=== PATIENT | female | born 1975 | race Caucasian/White ===

== ENCOUNTER 2017-05-20 10:18 | Inpatient (IN) | payer BC, OTHER ==
[2017-05-20] VITALS (34 sets, daily range): BP systolic 109–163; BP diastolic 53–96; PULSE 75–114; RESP 9–29; Ht 160 cm; Wt 72.0 kg
[~2017-05-20] VITALS: Ht 160 cm; Wt 72.0 kg
[~2017-05-20 10:18] MED LIST: ARIP5TAB7 PO; BUPR-75 PO; CEFAZOLIN 1 GM INJ ONE; FA/M1TAB3; FAMO-96 PO; HYDR-762 PO; METO5TAB2 PO; ONDA8TAB9 PO; OXYC-209 PO; PROM25TA14 PO; SERT20OR PO; creon; metroNIDAZOLE 500 MG/100 ML NS IVPB ONE
[2017-05-20] MEDS ORDERED: CEFAZOLIN 2 GM/50 ML (PMX) 50 ML IVPB SCH (12:00)
[2017-05-20] MEDS: D5-NS + KCL 20 MEQ 1,000 ML IV SCH ×2 (12:00→22:00)
[2017-05-20] MEDS ORDERED: Metronidazole 500 MG in NS 100 ML IVPB ONE (12:00)
[2017-05-20] MEDS ORDERED: LORA1TAB PO (12:04)
[2017-05-20] MEDS ORDERED: MIDAZOLAM 1 MG/ML 2 ML INJ ONE ×2 (13:53→20:59)
[2017-05-20] MEDS ORDERED: morphine SULFATE/PF (10 MG/10 ML) INJ ONE (13:54)
[2017-05-20] MEDS ORDERED: PROPOFOL 20 ML ONE (13:55)
[2017-05-20] MEDS ORDERED: DIPHENHYDRAMINE 50 MG INJ ONE (14:01)
[2017-05-20] MEDS ORDERED: THROMBIN 5000 UNIT VIAL ONE (14:11)
[2017-05-20] MEDS ORDERED: VASOPRESSIN 20 UNITS INJ ONE (15:55)
[2017-05-20] MEDS ORDERED: morphine 10 MG INJ ONE (16:15)
[2017-05-20] MEDS ORDERED: METHYLENE BLUE 1% 10 ML INJ ONE (16:56)
[2017-05-20] MEDS ORDERED: ROCURONIUM 50 MG INJ ONE (19:05)
[2017-05-20] MEDS ORDERED: GLYCOPYRROLATE 0.4 MG INJ ONE (19:05)
[2017-05-20] MEDS ORDERED: NEOSTIGMINE 3 MG/3 ML SYRINGE ONE (19:05)
[2017-05-20] MEDS ORDERED: LIDOCAINE 2% (SDV) 5 ML INJ ONE (19:05)
[2017-05-20] MEDS ORDERED: ONDANSETRON 4 MG INJ ONE (19:06)
--- NOTE | 2017-05-20 19:13 | HPN ---
Date/Time of Note Date/Time of Note DATE: 05/20/17 TIME: 19:13 Interval H&P Admission Note Pt. seen H&P reviewed: No system changes DERICK FARAH MD May 20, 2017 19:13
[2017-05-20] MEDS ORDERED: MEPERIDINE 25 MG INJ ONE (19:30)
[2017-05-20] MEDS ORDERED: ONDANSETRON 4 MG INJ IV PRN (19:30)
[2017-05-20] MEDS ORDERED: DIPHENHYDRAMINE 50 MG INJ IV PRN (19:30)
[2017-05-20] MEDS ORDERED: LABETALOL HCL 20MG INJ IV PRN (19:30)
[2017-05-20] MEDS ORDERED: MEPERIDINE 25 MG INJ IV PRN (19:30)
[2017-05-20] MEDS ORDERED: METOCLOPRAMIDE 10 MG INJ IV PRN (19:30)
[2017-05-20] MEDS ORDERED: HYDROCODONE/APAP (5/325) TAB PO PRN (19:30)
[2017-05-20] MEDS: FENTAnyl 50 MCG/ML VIAL IV PRN ×4 (19:38→20:02)
[2017-05-20] MEDS ORDERED: HYDROmorphONE (0.2 MG/ML) 10ML SYG IV ONE (19:40)
[2017-05-20] MEDS: HYDROmorphONE (0.2 MG/ML) 10ML SYG IV PRN ×4 (19:50→20:14)
[2017-05-20] MEDS ORDERED: ACETAMINOPHEN 1000MG/100ML IV 100 ML IVPB PRN (20:00)
[2017-05-20] MEDS ORDERED: HYDROmorphONE 0.2 MG/ML PCA IV SCH (20:00)
[2017-05-20] MEDS ORDERED: HYDROmorphONE (0.2 MG/ML) 10ML SYG IV PRN (20:00)
[2017-05-20] MEDS ORDERED: HYDROmorphONE 0.2 MG/ML PCA ONE (20:05)
[2017-05-20 20:06] LABS: BASOPHIL # 0.1 10^3/ul (0.0-0.1); BASOPHILS % 0.3 % (0.0-2.0); HEMATOCRIT 38.6 % (37.0-47.0); HEMOGLOBIN 13.4 g/dl (12.0-16.0); LYMPHOCYTES # 1.2 10^3/ul (0.8-2.9); LYMPHOCYTES % 6.9 % (15.0-51.0); MEAN CORPUSCULAR HEMOGLOBIN 35.4 pg (29.0-33.0); MEAN CORPUSCULAR HGB CONC 34.7 g/dl (32.0-37.0); MEAN CORPUSCULAR VOLUME 102.1 fl (82.0-101.0); MEAN PLATELET VOLUME 8.9 fl (7.4-10.4); MONOCYTE # 0.9 10^3/ul (0.3-0.9); NEUTROPHIL # 15.4 10^3/ul (1.6-7.5); NEUTROPHILS % 87.2 % (39.0-77.0); PLATELET COUNT 247 10^3/UL (140-415); RED BLOOD COUNT 3.78 10^6/ul (4.20-5.40); RED CELL DISTRIBUTION WIDTH 12.4 % (11.5-14.5); WHITE BLOOD COUNT 17.7 10^3/ul (4.8-10.8)
[2017-05-20] MEDS: morphine (1 MG/ML) 10ML SYRINGE IV PRN ×3 (20:07→20:20)
[2017-05-20 20:19] LABS: CALCIUM 8.2 mg/dl (8.4-10.2); CREATININE 0.67 mg/dl (0.44-1.00); POTASSIUM 3.9 mmol/L (3.5-5.1)
[2017-05-20] MEDS ORDERED: MIDAZOLAM 1 MG/ML 2 ML INJ IV ONE (21:00)
[2017-05-20] MEDS ORDERED: CEFAZOLIN 1 GM in SOD CHLORIDE 0.9% 100 ML IVPB SCH (21:30)
[2017-05-20] MEDS: FAMOTIDINE 20 MG INJ IV SCH (22:28)
[2017-05-20] MEDS: metroNIDAZOLE 500 MG/NS (PMX) 100 ML IVPB SCH (22:29)
[2017-05-20] MEDS: morphine 2 MG INJ IV PRN (23:23)
[2017-05-21 00:30] VITALS: BP 115/72; PULSE 75; RESP 20
[2017-05-21] MEDS: ONDANSETRON 4 MG INJ IV PRN ×4 (01:05→20:41)
[2017-05-21] MEDS: DIPHENHYDRAMINE 50 MG INJ IV PRN ×3 (02:19→15:53)
[2017-05-21] MEDS: morphine 2 MG INJ IV PRN ×2 (02:20→07:53)
[2017-05-21] MEDS: POTASSIUM CHLORIDE 20 MEQ in LACTATED RINGER'S 1,000 ML IV SCH ×3 (02:21→23:37)
[2017-05-21] MEDS: METOCLOPRAMIDE 10 MG INJ IV PRN ×3 (03:16→18:48)
[2017-05-21] MEDS: LORAZEPAM 2 MG INJ IV PRN ×3 (04:45→23:34)
[2017-05-21 05:25] VITALS: BP 101/57; PULSE 73; RESP 20
[2017-05-21] MEDS: metroNIDAZOLE 500 MG/NS (PMX) 100 ML IVPB SCH ×2 (05:37→13:12)
[2017-05-21 05:39] LABS: INR 1.05; PROTIME 13.7 Sec (12.2-14.2); PT RATIO 1.1
[2017-05-21 05:42] LABS: BASOPHILS % 0.1 % (0.0-2.0); HEMATOCRIT 36.6 % (37.0-47.0); HEMOGLOBIN 12.6 g/dl (12.0-16.0); LYMPHOCYTES # 0.7 10^3/ul (0.8-2.9); MEAN CORPUSCULAR HEMOGLOBIN 35.3 pg (29.0-33.0); MEAN CORPUSCULAR HGB CONC 34.4 g/dl (32.0-37.0); MEAN CORPUSCULAR VOLUME 102.5 fl (82.0-101.0); MEAN PLATELET VOLUME 9.3 fl (7.4-10.4); MONOCYTE # 0.6 10^3/ul (0.3-0.9); MONOCYTES % 4.3 % (0.0-11.0); NEUTROPHIL # 12.2 10^3/ul (1.6-7.5); NEUTROPHILS % 90.1 % (39.0-77.0); PLATELET COUNT 247 10^3/UL (140-415); RED BLOOD COUNT 3.57 10^6/ul (4.20-5.40); RED CELL DISTRIBUTION WIDTH 12.3 % (11.5-14.5); WHITE BLOOD COUNT 13.6 10^3/ul (4.8-10.8)
[2017-05-21 06:10] LABS: ALBUMIN 3.6 g/dl (3.3-4.9); ALBUMIN/GLOBULIN RATIO 1.44; BILIRUBIN,INDIRECT 0.2 mg/dl (0-1.1); BILIRUBIN,TOTAL 0.2 mg/dl (0.2-1.3); CALCIUM 8.5 mg/dl (8.4-10.2); CREATININE 0.65 mg/dl (0.44-1.00); POTASSIUM 4.8 mmol/L (3.5-5.1); TOTAL PROTEIN 6.1 g/dl (6.1-8.1)
--- NOTE | 2017-05-21 07:53 | HP ---
Date/Time of Note Date/Time of Note DATE: 05/21/17 TIME: 07:51 Assessment/Plan VTE Prophylaxis VTE Prophylaxis Intervention: other Lines/Catheters IV Catheter Type (from Nrsg): Peripheral IV Urinary Cath still in place: Yes Reason Cath still needed: skin wounds contaminated by urine Assessment/Plan Chief Complaint/Hosp Course 1) vaginal bleeding - s/p hysterectomy 2) sulfa allergic reaction - benadryl Problems: HPI/ROS Admit Date/Time Admit Date/Time May 20, 2017 at 21:34 Hx of Present Illness Patient with a history of pancreatitis comes in with uncontrolled vaginal bleeding. Patient underwent hysterectomy. Patient tolerated the procedure fine but now is having significant pain. Patient also has a rash from sulfa allergy. PMH/Family/Social Past Medical History pancreatitis Social History Alcohol Use: occasionally Smoking Status: Current every day smoker Exam/Review of Systems Vital Signs Vitals Vital Signs Date Time Temp Pulse Resp B/P Pulse Ox O2 Delivery O2 Flow Rate FiO2 05/21/17 05:25 98.3 73 20 101/57 97 Nasal Cannula 2.0 Intake and Output 05/20/17 05/20/17 05/21/17 15:00 23:00 07:00 Intake Total 100 ml 475 ml Output Total 600 ml 800 ml Balance -500 ml -325 ml Exam Constitutional: well developed Head: atraumatic, normocephalic Neck: supple Respiratory: clear to auscultation Cardiovascular: regular rate and rhythm Gastrointestinal: soft, tender Extremities: normal pulses Labs Result Diagram: 05/21/17 0443 05/21/17442 Medications Medications Current Medications Metronidazole (Flagyl 500 Mg (Pmx)) 100 ml @ 100 mls/hr Q8H IVPB Last administered on 05/21/17 05:37; Admin Dose 100 MLS/HR; Start 05/20/17 at 21:30 ; Stop 05/21/17 at 21:29 Morphine Sulfate (morphine) 2 mg Q2H PRN IV PAIN LEVEL 6-10 Last administered on 05/21/17 02:20; Admin Dose 2 MG; Start 05/20/17 at 19:30 Acetaminophen/ Hydrocodone Bitart ([place] (5/325)) 1 tab Q6H PRN PO PAIN LEVEL 6 -10; Start 05/20/17 at 19:30 Diphenhydramine HCl (Benadryl) 25 mg Q6H PRN IV ITCHING Last administered on 02:19; Admin Dose 25 MG; Start 05/20/17 at 19:30 Ondansetron HCl (Zofran Inj) 4 mg Q6H PRN IV NAUSEA AND/OR VOMITING Last administered on 05/21/17 01:05; Admin Dose 4 MG; Start 05/20/17 at 19:30 Famotidine 20 mg 20 mg Q12 IV Last administered on 05/20/17 22:28; Admin Dose 20 MG; Start 05/20/17 at 21:00 Potassium Chloride 20 meq/ Lactated Ringer's 1,010 ml @ 100 mls/hr Q10H6M IV Last administered on 05/21/17 02:21; Admin Dose 100 MLS/HR; Start 05/20/17 at 22:00 Acetaminophen 100 ml @ 400 mls/hr ONCE PRN IVPB PAIN Last administered on 05/20 20:19; Admin Dose 400 MLS/HR; Start 05/20/17 at 20:00; Stop 05/21/17 at 19 :59 Cefazolin Sodium (Ancef 1 Gm/50 ml (Pmx)) 50 ml @ 100 mls/hr Q8H IVPB Last administered on 05/21/17 00:00; Admin Dose 100 MLS/HR; Start 05/20/17 at 23:30 ; Stop 05/21/17 at 23:29 Metoclopramide HCl (Reglan) 10 mg Q6H PRN IV N/V Last administered on 03:16; Admin Dose 10 MG; Start 05/21/17 at 03:00 Lorazepam (Ativan) 1 mg Q6H PRN IV anxiety Last administered on 05/21/17 04:45 ; Admin Dose 1 MG; Start 05/21/17 at 03:00 CAITLYN OSBORNE May 21, 2017 07:53
[2017-05-21] MEDS: CEFAZOLIN 1 GM/50 ML (PMX) 50 ML IVPB SCH ×3 (07:54→15:57)
[2017-05-21] MEDS: FAMOTIDINE 20 MG INJ IV SCH ×2 (07:54→20:41)
[2017-05-21 08:04] VITALS: BP 105/59; RESP 18
--- NOTE | 2017-05-21 09:16 | PN ---
Date/Time of Note Date/Time of Note DATE: 05/21/17 TIME: 09:13 Assessment/Plan VTE Prophylaxis VTE Prophylaxis Intervention: SCD's Lines/Catheters IV Catheter Type (from Nrs): Peripheral IV Urinary Cath still in place: Yes Reason Cath still needed: other (indicate) Assessment/Plan Chief Complaint/Hosp Course Adenomyosis, polyp, Problems: Assessment/Plan A- N/V due to enterolysis and Flagyl. P- defer adv diet and Must keep Borja due to cystotomy repair Subjective 24 Hr Interval Summary Free Text/Dictation some N/V and pain and not OOB Exam/Review of Systems Vital Signs Vitals Vital Signs Date Time Temp Pulse Resp B/P Pulse Ox O2 Delivery O2 Flow Rate FiO2 05/21/17 08:04 97.8 68 18 105/59 99 05/21/17 05:25 Nasal Cannula 2.0 Intake and Output 05/20/17 05/20/17 05/21/17 15:00 23:00 07:00 Intake Total 100 ml 475 ml Output Total 600 ml 800 ml Balance -500 ml -325 ml Exam Resp- clear CVS- nsr Abd- soft NT Ext nt no edema Results Result Diagram: 05/21/17 0443 05/21/17 0443 Results 24 hrs Laboratory Tests Test 05/20/17 19:55 05/21/17 04:43 05/21/17 05:42 White Blood Count 17.7 H 13.6 #H Red Blood Count 3.78 L 3.57 L Hemoglobin 13.4 12.6 Hematocrit 38.6 36.6 L Mean Corpuscular Volume 102.1 H 102.5 H Mean Corpuscular Hemoglobin 35.4 H 35.3 H Mean Corpuscular Hemoglobin Concent 34.7 34.4 Red Cell Distribution Width 12.4 12.3 Platelet Count 247 247 Mean Platelet Volume 8.9 9.3 Neutrophils % 87.2 H 90.1 H Lymphocytes % 6.9 L 5.0 L Monocytes % 5.0 4.3 Eosinophils % 0.0 0.0 Basophils % 0.3 0.1 Nucleated Red Blood Cells % 0.0 0.0 Neutrophils # 15.4 H 12.2 H Lymphocytes # 1.2 0.7 L Monocytes # 0.9 0.6 Eosinophils # 0.0 0.0 Basophils # 0.1 0.0 Nucleated Red Blood Cells # 0.0 0.0 Sodium Level 138 140 Potassium Level 3.9 4.8 Chloride Level 106 104 Carbon Dioxide Level 23 28 Anion Gap 13 13 Blood Urea Nitrogen 5 L 5 L Creatinine 0.67 0.65 Glucose Level 131 115 Calcium Level 8.2 L 8.5 Prothrombin Time 13.7 Prothrombin Time Ratio 1.1 INR International Normalized Ratio 1.05 Total Bilirubin 0.2 Direct Bilirubin 0.00 Indirect Bilirubin 0.2 Aspartate Amino Transf (AST/SGOT) 23 Alanine Aminotransferase (ALT/SGPT) 26 Alkaline Phosphatase 56 Total Protein 6.1 Albumin 3.6 Globulin 2.50 Albumin/Globulin Ratio 1.44 Lab Scanned Report LAB Medications Medications Current Medications Metronidazole (Flagyl 500 Mg (Pmx)) 100 ml @ 100 mls/hr Q8H IVPB Last administered on 05/21/17 05:37; Admin Dose 100 MLS/HR; Start 05/20/17 at 21:30 ; Stop 05/21/17 at 21:29 Morphine Sulfate (morphine) 2 mg Q2H PRN IV PAIN LEVEL 6-10 Last administered on 05/21/17 07:53; Admin Dose 2 MG; Start 05/20/17 at 19:30 Acetaminophen/ Hydrocodone Bitart ([place] (5/325)) 1 tab Q6H PRN PO PAIN LEVEL 6 -10; Start 05/20/17 at 19:30 Diphenhydramine HCl (Benadryl) 25 mg Q6H PRN IV ITCHING Last administered on 02:19; Admin Dose 25 MG; Start 05/20/17 at 19:30 Ondansetron HCl (Zofran Inj) 4 mg Q6H PRN IV NAUSEA AND/OR VOMITING Last administered on 05/21/17 08:04; Admin Dose 4 MG; Start 05/20/17 at 19:30 Famotidine 20 mg 20 mg Q12 IV Last administered on 05/21/17 07:54; Admin Dose 20 MG; Start 05/20/17 at 21:00 Potassium Chloride 20 meq/ Lactated Ringer's 1,010 ml @ 60 mls/hr [id number] IV Last administered on 05/21/17 02:21; Admin Dose 100 MLS/HR; Start 05/20/17 at 22:00 Acetaminophen 100 ml @ 400 mls/hr ONCE PRN IVPB PAIN Last administered on 05/20 20:19; Admin Dose 400 MLS/HR; Start 05/20/17 at 20:00; Stop 05/21/17 at 19 :59 Cefazolin Sodium (Ancef 1 Gm/50 ml (Pmx)) 50 ml @ 100 mls/hr Q8H IVPB Last administered on 05/21/17 07:54; Admin Dose 100 MLS/HR; Start 05/20/17 at 23:30 ; Stop 05/21/17 at 23:29 Metoclopramide HCl (Reglan) 10 mg Q6H PRN IV N/V Last administered on 03:16; Admin Dose 10 MG; Start 05/21/17 at 03:00 Lorazepam (Ativan) 1 mg Q6H PRN IV anxiety Last administered on 05/21/17 04:45 ; Admin Dose 1 MG; Start 05/21/17 at 03:00 DERICK FARAH MD May 21, 2017 09:16
[2017-05-21] MEDS: morphine 4 MG/ML VIAL IV PRN ×6 (10:51→22:59)
[2017-05-21 14:01] VITALS: BP 103/60; RESP 18
[2017-05-21 19:15] VITALS: BP 114/66; RESP 18
[2017-05-22] MEDS: morphine 4 MG/ML VIAL IV PRN ×6 (01:36→23:15)
[2017-05-22] MEDS: METOCLOPRAMIDE 10 MG INJ IV PRN ×4 (01:36→23:14)
[2017-05-22 02:03] VITALS: BP 119/67; RESP 18
[2017-05-22] MEDS: ONDANSETRON 4 MG INJ IV PRN ×3 (03:54→20:27)
[2017-05-22 04:50] LABS: BASOPHILS % 0.2 % (0.0-2.0); HEMATOCRIT 32.2 % (37.0-47.0); HEMOGLOBIN 10.8 g/dl (12.0-16.0); LYMPHOCYTES # 0.9 10^3/ul (0.8-2.9); LYMPHOCYTES % 8.2 % (15.0-51.0); MEAN CORPUSCULAR HEMOGLOBIN 34.5 pg (29.0-33.0); MEAN CORPUSCULAR HGB CONC 33.5 g/dl (32.0-37.0); MEAN CORPUSCULAR VOLUME 102.9 fl (82.0-101.0); MONOCYTE # 0.6 10^3/ul (0.3-0.9); MONOCYTES % 5.8 % (0.0-11.0); NEUTROPHIL # 9.1 10^3/ul (1.6-7.5); NEUTROPHILS % 85.4 % (39.0-77.0); PLATELET COUNT 228 10^3/UL (140-415); RED BLOOD COUNT 3.13 10^6/ul (4.20-5.40); RED CELL DISTRIBUTION WIDTH 12.3 % (11.5-14.5); WHITE BLOOD COUNT 10.7 10^3/ul (4.8-10.8)
[2017-05-22 05:03] LABS: CREATININE 0.65 mg/dl (0.44-1.00); POTASSIUM 3.7 mmol/L (3.5-5.1)
[2017-05-22] MEDS: LORAZEPAM 2 MG INJ IV PRN ×2 (06:35→17:20)
[2017-05-22 07:58] VITALS: BP 103/69; RESP 15
[2017-05-22] MEDS: FAMOTIDINE 20 MG INJ IV SCH ×2 (09:28→20:28)
--- NOTE | 2017-05-22 11:00 | PN ---
Date/Time of Note Date/Time of Note DATE: 05/22/17 TIME: 11:00 Assessment/Plan VTE Prophylaxis VTE Prophylaxis Intervention: other Lines/Catheters IV Catheter Type (from Nrsg): Peripheral IV Urinary Cath still in place: Yes Reason Cath still needed: skin wounds contaminated by urine Assessment/Plan Chief Complaint/Hosp Course 1) vaginal bleeding - s/p hysterectomy 2) sulfa allergic reaction - benadryl Problems: Subjective 24 Hr Interval Summary Free Text/Dictation Patient still have abdominal pain Exam/Review of Systems Vital Signs Vitals Vital Signs Date Time Temp Pulse Resp B/P Pulse Ox O2 Delivery O2 Flow Rate FiO2 05/22/17 07:58 98.0 88 15 103/69 98 05/21/17 05:25 Nasal Cannula 2.0 Intake and Output 05/21/17 05/21/17 05/22/17 15:00 23:00 07:00 Intake Total 150 ml 650 ml 1250 ml Output Total 1000 ml Balance 150 ml 650 ml 250 ml Exam Constitutional: well developed Head: atraumatic, normocephalic Neck: supple Respiratory: clear to auscultation Cardiovascular: regular rate and rhythm Gastrointestinal: non-tender, soft Extremities: normal pulses Results Result Diagram: 05/22/17 0430 05/22/17 0430 Results 24 hrs Laboratory Tests Test 05/22/17 04:30 White Blood Count 10.7 # Red Blood Count 3.13 L Hemoglobin 10.8 L Hematocrit 32.2 L Mean Corpuscular Volume 102.9 H Mean Corpuscular Hemoglobin 34.5 H Mean Corpuscular Hemoglobin Concent 33.5 Red Cell Distribution Width 12.3 Platelet Count 228 Mean Platelet Volume 9.0 Neutrophils % 85.4 H Lymphocytes % 8.2 L Monocytes % 5.8 Eosinophils % 0.0 Basophils % 0.2 Nucleated Red Blood Cells % 0.0 Neutrophils # 9.1 H Lymphocytes # 0.9 Monocytes # 0.6 Eosinophils # 0.0 Basophils # 0.0 Nucleated Red Blood Cells # 0.0 Sodium Level 141 Potassium Level 3.7 Chloride Level 104 Carbon Dioxide Level 24 Anion Gap 17 H Blood Urea Nitrogen 6 L Creatinine 0.65 Glucose Level 70 # Calcium Level 8.0 L Medications Medications Current Medications Acetaminophen/ Hydrocodone Bitart ([place] (5/325)) 1 tab Q6H PRN PO PAIN LEVEL 6 -10; Start 05/20/17 at 19:30 Diphenhydramine HCl (Benadryl) 25 mg Q6H PRN IV ITCHING Last administered on 15:53; Admin Dose 25 MG; Start 05/20/17 at 19:30 Ondansetron HCl (Zofran Inj) 4 mg Q6H PRN IV NAUSEA AND/OR VOMITING Last administered on 05/22/17 03:54; Admin Dose 4 MG; Start 05/20/17 at 19:30 Famotidine 20 mg 20 mg Q12 IV Last administered on 05/22/17 09:28; Admin Dose 20 MG; Start 05/20/17 at 21:00 Potassium Chloride/Lactated Ringer's (KCl/Lr) 1,010 ml @ 60 mls/hr [id number] IV Last administered on 05/21/17 23:37; Admin Dose 60 MLS/HR; Start 05/20/17 at 22 :00 Metoclopramide HCl (Reglan) 10 mg Q6H PRN IV N/V Last administered on 09:24; Admin Dose 10 MG; Start 05/21/17 at 03:00 Lorazepam (Ativan) 1 mg Q6H PRN IV anxiety Last administered on 05/22/17 06:35 ; Admin Dose 1 MG; Start 05/21/17 at 03:00 Morphine Sulfate (morphine) 4 mg Q2H PRN IV PAIN LEVEL 6-10 Last administered on 05/22/17 09:24; Admin Dose 4 MG; Start 05/21/17 at 09:30 CAITLYN OSBORNE May 22, 2017 11:00
[2017-05-22] MEDS: DIPHENHYDRAMINE 50 MG INJ IV PRN ×2 (11:47→17:24)
--- NOTE | 2017-05-22 12:47 | PN ---
Date/Time of Note Date/Time of Note DATE: 05/22/17 TIME: 12:42 Assessment/Plan VTE Prophylaxis VTE Prophylaxis Intervention: SCD's Lines/Catheters IV Catheter Type (from Nrsg): Peripheral IV Urinary Cath still in place: Yes Reason Cath still needed: urinary retention Assessment/Plan Chief Complaint/Hosp Course Adenomyosis, polyp, Problems: Subjective 24 Hr Interval Summary Free Text/Dictation Minimal flatus and pain still significant lower abd, although multiple family members emphasized she is very, very sensitive to any pain.Also, patient calm and no emotion when family present. Exam/Review of Systems Vital Signs Vitals Vital Signs Date Time Temp Pulse Resp B/P Pulse Ox O2 Delivery O2 Flow Rate FiO2 05/22/17 07:58 98.0 88 15 103/69 98 05/21/17 05:25 Nasal Cannula 2.0 Intake and Output 05/21/17 05/21/17 05/22/17 15:00 23:00 07:00 Intake Total 150 ml 650 ml 1250 ml Output Total 1000 ml Balance 150 ml 650 ml 250 ml Exam Resp- clear CVS-nsr Abd- minimal distension vs obesity and mildly s/p tender; clean Ext; NT no edema Results Result Diagram: 05/22/17 0430 05/22/17 0430 Results 24 hrs Laboratory Tests Test 05/22/17 04:30 White Blood Count 10.7 # Red Blood Count 3.13 L Hemoglobin 10.8 L Hematocrit 32.2 L Mean Corpuscular Volume 102.9 H Mean Corpuscular Hemoglobin 34.5 H Mean Corpuscular Hemoglobin Concent 33.5 Red Cell Distribution Width 12.3 Platelet Count 228 Mean Platelet Volume 9.0 Neutrophils % 85.4 H Lymphocytes % 8.2 L Monocytes % 5.8 Eosinophils % 0.0 Basophils % 0.2 Nucleated Red Blood Cells % 0.0 Neutrophils # 9.1 H Lymphocytes # 0.9 Monocytes # 0.6 Eosinophils # 0.0 Basophils # 0.0 Nucleated Red Blood Cells # 0.0 Sodium Level 141 Potassium Level 3.7 Chloride Level 104 Carbon Dioxide Level 24 Anion Gap 17 H Blood Urea Nitrogen 6 L Creatinine 0.65 Glucose Level 70 # Calcium Level 8.0 L Medications Medications Current Medications Acetaminophen/ Hydrocodone Bitart ([place] (5/325)) 1 tab Q6H PRN PO PAIN LEVEL 6 -10; Start 05/20/17 at 19:30 Diphenhydramine HCl (Benadryl) 25 mg Q6H PRN IV ITCHING Last administered on 11:47; Admin Dose 25 MG; Start 05/20/17 at 19:30 Ondansetron HCl (Zofran Inj) 4 mg Q6H PRN IV NAUSEA AND/OR VOMITING Last administered on 05/22/17 03:54; Admin Dose 4 MG; Start 05/20/17 at 19:30 Famotidine 20 mg 20 mg Q12 IV Last administered on 05/22/17 09:28; Admin Dose 20 MG; Start 05/20/17 at 21:00 Potassium Chloride/Lactated Ringer's (KCl/Lr) 1,010 ml @ 50 mls/hr [id number] IV Last administered on 05/21/17 23:37; Admin Dose 60 MLS/HR; Start 05/20/17 at 22 :00 Metoclopramide HCl (Reglan) 10 mg Q6H PRN IV N/V Last administered on 09:24; Admin Dose 10 MG; Start 05/21/17 at 03:00 Lorazepam (Ativan) 1 mg Q6H PRN IV anxiety Last administered on 05/22/17 06:35 ; Admin Dose 1 MG; Start 05/21/17 at 03:00 Ketorolac Tromethamine (Toradol) 30 mg Q6H IV ; Start 05/22/17 at 13:00; Stop at 19:01 Morphine Sulfate (morphine) 2 mg Q3HWA PRN IV PAIN LEVEL 6-10; Start 05/22/17 at 15:00; Status DERICK HARRINGTON MD May 22, 2017 12:47
[2017-05-22] MEDS: KETOROLAC 30 MG INJ IV SCH ×3 (14:18→20:27)
[2017-05-22] MEDS: POTASSIUM CHLORIDE 20 MEQ in LACTATED RINGER'S 1,000 ML IV SCH ×3 (14:24→17:55)
[2017-05-22 19:00] VITALS: BP 127/69; RESP 18
--- NOTE | 2017-05-22 20:49 | OPR ---
Date/Time of Note Date/Time of Note DATE: 05/22/17 TIME: 20:48 Operative Report Free Text/Dictation 5 OPERATIVE REPORT [facility] Name: Crys Floyd Medical Date: 05/21/17 Preoperative Diagnosis: 1- Uterine enlargement with menorrhagia 2- Pelvic pain Postoperative Diagnosis: 1- Fibroids 2- Ureteral stricture 3- Hypervascularity Procedures: 1- Total laparoscopic hysterectomy and bilateral salpingectomy 2- Bilateral ureteral dissection with repositioning 3-Bilateral retroperitoneal uterine artery ligation 4-Repair of cystotomy 5- Cystoscopy Surgeon: Dr. Huerta Manager Branch: Dr. Dave Anesthesia: General Indication for Procedure: The patient is a 42 -year old female with a large pelvic/abdominal mass consistent with fibroids per history and examination and pelciv/abdominal pain for whom, after considering all options with risks and benefits a laparoscopy was planned with a total laparoscopic hysterectomy with possible staging or laparotomy if needed. Name: Crys Floyd Medical Findings and Summary The patient was laparoscoped and noted to have very dense omental adhesions adherent to the anterior abdomen and bladder/uterus as well as pelvic sidewalls that required extensive attention and findings consistent of 14-16 week fibroids and both adnexia densely adherent to the sidewalls with tubal remnants and therefore requiring a ureteral dissection and repositioning bilaterally while gaining access to the uterine arteries. While completing the ureteral dissections and gaining access to the uterine arteries anatomic issues and hypervascularity necessitated that the uterine arteries be dissected and clipped laterally, adjacent to the hypogastric arteries bilaterally. The total laparoscopic hysterectomy was then completed and because the bladder was densely adherent to the fundus and thinned with a small cystotomy it was repaired laparoscopically. The integrity of the bladder was confirmed by instillation of methylene blue and the location of the sutures confirmed not to compromise the ureteral drainage cystoscopically. Procedure: After being prepped and draped in the usual manner the cervix was sutured with interrupted 0- Vicryl suture and an EEA sizer and pneumo-occluder was inserted vaginally was placed against the cervix. A 5-millimeter trocar was then placed cephlad to the umbilicus without incident but anterior omental adhesions were noted that precluded visibility. Hence, an additional 5-milimeter trocar was placed more cephlad to the first. Subsequently, we insufflated to 15 mm Hg and placed two 5-millimeter trocars laterally and enterolysis was carried out with sharp dissection although the adhesions were very dense and omental adhesions were addressed with the Thunderbeat on the entire anterior abdomen. Subsequently , Omental adhesions were noted to be densely adherent to the pelvis and anterior uterus as well as bladder base, all of which were selectively lysed with sharp dissection and the Omni when able and if not near a viable Name: [facility] structure the Thunderbeat was also used. In the process the small bowel was mobilized and subsequently a 12-millimeter trocar suprapubically. At this time any remaining pelvic adhesions were lysed with sharp dissection and an Omni if not adjacent to serosa. Subsequently we explored and noted pelvic findings consistent with a 14-16 week fibroids and an expanded lower uterine segment with both adnexia densely adherent to the sidewalls with compromised tubes obscuring the retroperitoneal anatomy. Initially the right round ligament was cauterized and transected with the Thunderbeat and the retroperitoneal spaced opened parallel to the IP ligament an laterally with the same devise and Omni. The ureter was identified and because of pelvic scar tissue and the large fibroids and adnexia adherent to the sidewall required a specific dissection and repositioning. The ureter was bluntly dissected away from the broad ligament with an Omni and endo-dissector, and carefully repositioned lateral to the broad ligament and pathology and expanded lower uterine segment with fibroids. The process was continued distally due to some element of additional stricture. Due to vascularity and ongoing oozing as well as the large uterus the uterine artery was identified and clipped lateral to the ureter, immediately distal to the branching of the hypogastric and at the bifurcation of the hypogastric; salvaging both observed superior and inferior vesicle while controlling the entire uterine with associated collateral branches. Hence, space was developed in the broad ligament and the triple pedicle was transected with a Thunderbeat. The residual fallopian tube was removed. At this time the sigmoid was dissected from the sidewall with sharp dissection and the Omni if not adjacent to serosa. The left round ligament was transected with the Thunderbeat and the retroperitoneal spaced opened parallel to the IP ligament and laterally with the same devise and Omni. The ureter was identified and because of similar anatomic issues to the contralateral side required a specific dissection and repositioning. The ureter was bluntly dissected away from the broad ligament bilaterally with an Omni and endo-dissector, and carefully repositioned lateral to the broad ligament and scar tissue Name: Crys Floyd [facility] with inflammation and with adjacent adnexia. Similarly, due to vascularity and ongoing oozing as well as the adjacent adherent adnexia and fibroid uterus the uterine artery was identified and clipped lateral to the ureter, immediately distal to the branching of the hypogastric and at the bifurcation of the hypogastric; salvaging both observed superior and inferior vesicle while controlling the entire uterine with associated collateral branches. Subsequently, space was developed in the broad ligament and the residual fallopian tube was removed with the Thunderbeat after which the triple pedicle was transected with a Thunderbeat. We then used a corkscrew placed through the 12-mm suprapubic trocar to manipulate the uterus allowing development or the bladder flap with difficulty due to dense adhesions to the uterus the Omni and sharp as well as blunt dissection and in the process due to the location and tissue quality a 5-millimeter cystotomy occurred which was confirmed with methylene blue and saline in the bladder. The right uterine artery was transected with a Thunderbeat perpendicular to the distal lower uterine segment and the Cardinal ligament and utero-sacral ligament were both transected with an Omni and Thunderbeat parallel to the lower uterine segment and cervix. An identical series of steps were taken on the contralateral side. Additional efforts were required to safely develop the cul-de-sac with sharp dissection laterally and the integrity of the sigmoid was confirmed with the EEA sizer. The anterior and posterior colpotomies were accomplished with a Thunderbeat instrument anteriorly and posteriorly, and continued around the sides as the specimen was removed through the vagina uneventfully using an Omni. The vagina was closed with Interrupted 0- Vicryl suture and continuous 2-0 Stratafix. Subsequently the aforementioned bladder defect was repaired with 2 layers of continuous 3-0 Vicryl suture and integrity of the bladder was confirmed by instillation of methylene blue. After irrigating and assuring hemostasis the 12-millimeter trocar was removed and the fascia was closed with 0-vicryl using an endo-close devise. The gas was removed and the skin of all sites then closed with 5-0 Plain Gut. Subsequently, a low volume cystoscopy was performed and Name: [facility] the aforementioned bladder repair was carefully observed and noted to be separate from ureteral implant sites. Additionally, urine was clearly noted to project from both the right and the left ureteral orifices without any doubt, indicating that the bladder incision line did not compromise ureteral function in any possible manner. The EBL was 100cc and the patient tolerated the procedure well and left the OR in good condition. Silas Huerta M.D. SILAS HUERTA MD May 22, 2017 20:48
[2017-05-23] MEDS: LORAZEPAM 2 MG INJ IV PRN (00:19)
[2017-05-23 02:00] VITALS: BP 109/67; RESP 18
[2017-05-23] MEDS: ONDANSETRON 4 MG INJ IV PRN (03:10)
[2017-05-23] MEDS: KETOROLAC 30 MG INJ IV SCH ×2 (03:11→09:51)
[2017-05-23] MEDS: DIPHENHYDRAMINE 50 MG INJ IV PRN (04:55)
[2017-05-23] MEDS: morphine 4 MG/ML VIAL IV PRN (04:57)
[2017-05-23 06:10] LABS: BASOPHILS % 0.4 % (0.0-2.0); EOSINOPHILS % 0.5 % (0.0-7.0); HEMATOCRIT 30.3 % (37.0-47.0); HEMOGLOBIN 10.5 g/dl (12.0-16.0); MEAN CORPUSCULAR HEMOGLOBIN 34.7 pg (29.0-33.0); MEAN CORPUSCULAR HGB CONC 34.7 g/dl (32.0-37.0); MEAN PLATELET VOLUME 9.3 fl (7.4-10.4); MONOCYTE # 0.8 10^3/ul (0.3-0.9); MONOCYTES % 9.6 % (0.0-11.0); NEUTROPHIL # 5.4 10^3/ul (1.6-7.5); NEUTROPHILS % 65.1 % (39.0-77.0); PLATELET COUNT 240 10^3/UL (140-415); RED BLOOD COUNT 3.03 10^6/ul (4.20-5.40); WHITE BLOOD COUNT 8.3 10^3/ul (4.8-10.8)
[2017-05-23 06:39] LABS: CREATININE 0.6 mg/dl (0.44-1.00); POTASSIUM 3.4 mmol/L (3.5-5.1)
[2017-05-23 07:40] VITALS: BP 120/71; RESP 19
[2017-05-23] MEDS: FAMOTIDINE 20 MG INJ IV SCH (09:51)
[2017-05-23] MEDS ORDERED: OXYCODONE/ACETAMINOPHEN (10/325) TAB PO ONE (12:00)
--- NOTE | 2017-05-23 12:06 | DS ---
Date/Time of Note Date/Time of Note DATE: 05/23/17 TIME: 12:05 Discharge Summary Admission/Discharge Info Admit Date/Time May 20, 2017 at 21:34 Discharge Date/Time 05/23/17 Patient Condition: Fair Hx of Present Illness Patient with a history of pancreatitis comes in with uncontrolled vaginal bleeding. Patient underwent hysterectomy. Patient tolerated the procedure fine but now is having significant pain. Patient also has a rash from sulfa allergy. Hospital Course Patient comes in with adenomyosis. She underwent hysterectomy. Patient tolerated the procedure. There was a complication with bladder and so the patient will be discharged with a lehman catheter. Patient also will be sent home with [facility] for antibiotics. She is doing better and is stable for discharge Adenomyosis, polyp, Home Meds Reported Medications Lorazepam* (Lorazepam*) 1 Mg Tablet, 1 MG PO HS, #30 TAB 05/20/17 Oxycodone HCl/Acetaminophen (Percocet 10-325 mg Tablet) 1 Each Tablet, 1 EACH PO Y for PAIN, TAB 09/16/16 Aripiprazole* (Abilify*) 5 Mg Tab, 5 MG PO DAILY, #30 TAB 09/16/16 Bupropion Hcl* (Wellbutrin XL*) 150 Mg Tab.sr.24h, 450 MG PO DAILY, TAB.SA 06/26/15 Ondansetron Hcl* (Zofran*) 8 Mg Tablet, 8 MG PO Q6H Y for NAUSEA AND OR VOMITING , TAB 04/01/15 Discontinued Reported Medications Sertraline Hcl* (Zoloft*) 20 Mg/Ml Oral.conc, 100 MG PO DAILY, ML 06/26/15 Metoclopramide Hcl (Reglan) 5 Mg Tab, 5 MG PO Q6H, TAB 04/01/15 Promethazine Hcl* (Phenergan*) 25 Mg Tablet, 25 MG PO Q6H Y for NAUSEA, TAB 04/01/15 Famotidine* (Pepcid*) 20 Mg Tablet, 20 MG PO DAILY, TAB 04/01/15 Hydrocodone Bit-Acetaminophen* (Chinle*) 10-325 Mg Tablet, 1 TAB PO Q4H Y for PAIN, TAB 04/01/15 Fa/Mv,Ca,Fe,Min/Lycopene/Lut (Centrum Tablet) 1 Tab Tablet 05/23/10 [creon] No Conflict Check 05/23/10 Primary Care Provider Adali Colin Pending Labs Laboratory Tests Test 05/23/17 04:45 White Blood Count 8.310^3/ul (4.8-10.8) Red Blood Count 3.0310^6/ul (4.20-5.40) Hemoglobin 10.5g/dl (12.0-16.0) Hematocrit 30.3% (37.0-47.0) Mean Corpuscular Volume 100.0fl (82.0-101.0) Mean Corpuscular Hemoglobin 34.7pg (29.0-33.0) Mean Corpuscular Hemoglobin Concent 34.7g/dl (32.0-37.0) Red Cell Distribution Width 12.0% (11.5-14.5) Platelet Count 61382^3/UL (140-415) Mean Platelet Volume 9.3fl (7.4-10.4) Neutrophils % 65.1% (39.0-77.0) Lymphocytes % 24.0% (15.0-51.0) Monocytes % 9.6% (0.0-11.0) Eosinophils % 0.5% (0.0-7.0) Basophils % 0.4% (0.0-2.0) Nucleated Red Blood Cells % 0.0/100WBC (0.0-0.0) Neutrophils # 5.410^3/ul (1.6-7.5) Lymphocytes # 2.010^3/ul (0.8-2.9) Monocytes # 0.810^3/ul (0.3-0.9) Eosinophils # 0.010^3/ul (0.0-0.5) Basophils # 0.010^3/ul (0.0-0.1) Nucleated Red Blood Cells # 0.010^3/ul (0.0-0.0) Sodium Level 141mmol/L (135-144) Potassium Level 3.4mmol/L (3.5-5.1) Chloride Level 107mmol/L (97-110) Carbon Dioxide Level 25mmol/L (21-31) Anion Gap 12 (8-16) Blood Urea Nitrogen 5mg/dl (7-20) Creatinine 0.60mg/dl (0.44-1.00) Glucose Level 65mg/dl (70-220) Calcium Level 8.0mg/dl (8.4-10.2) CAITLYN OSBORNE May 23, 2017 12:06
== END 2017-05-23 14:20 | disposition home or self-care (01) | DRG 743 ==
LOC: SDS 10:18 → EDSTATUS 13:00 → SDS 21:30 → MS1 21:34
PROC: 0UT9FZZ Resection of Uterus, Via Natural or Artificial Opening With Percutaneous Endoscopic Assistance (ICD-10-PCS; principal; 2017-05-22)
PROC: 0UT7FZZ Resection of Bilateral Fallopian Tubes, Via Natural or Artificial Opening With Percutaneous Endoscopic Assistance (ICD-10-PCS; 2017-05-22)
PROC: 0UTC7ZZ Resection of Cervix, Via Natural or Artificial Opening (ICD-10-PCS; 2017-05-22)
PROC: 0TNB4ZZ Release Bladder, Percutaneous Endoscopic Approach (ICD-10-PCS; 2017-05-22)
PROC: 0TN74ZZ Release Left Ureter, Percutaneous Endoscopic Approach (ICD-10-PCS; 2017-05-22)
PROC: 0TN64ZZ Release Right Ureter, Percutaneous Endoscopic Approach (ICD-10-PCS; 2017-05-22)
PROC: 0DNN4ZZ Release Sigmoid Colon, Percutaneous Endoscopic Approach (ICD-10-PCS; 2017-05-22)
PROC: 0TQB4ZZ Repair Bladder, Percutaneous Endoscopic Approach (ICD-10-PCS; 2017-05-22)
PROC: 0TJB8ZZ Inspection of Bladder, Via Natural or Artificial Opening Endoscopic (ICD-10-PCS; 2017-05-22)
DX: N80.0 Endometriosis of uterus (principal); N13.5 Crossing vessel and stricture of ureter without hydronephrosis; D25.9 Leiomyoma of uterus, unspecified; K66.0 Peritoneal adhesions (postprocedural) (postinfection); N84.1 Polyp of cervix uteri; L27.0 Generalized skin eruption due to drugs and medicaments taken internally; T37.0X5A Adverse effect of sulfonamides, initial encounter; Y92.239 Unspecified place in hospital as the place of occurrence of the external cause; F17.200 Nicotine dependence, unspecified, uncomplicated
CPT/HCPCS: 80048; 80053; 84703; 85025; 85610; 86850; 86900; 86901; 86920; 88302; 88305; J0131; J0690; J1170; J1200; J1885; J2060; J2175; J2250; J2270; J2274; J2405; J2710; J2765; J3010; J3480; J7120

== ENCOUNTER 2017-06-01 12:29 | Inpatient (IN) | payer BC ==
[~2017-06-01] VITALS: Ht 160 cm; Wt 88.9 kg
[~2017-06-01 12:29] MED LIST changes: -CEFAZOLIN 1 GM INJ ONE; -FA/M1TAB3; -FAMO-96 PO; -HYDR-762 PO; +LORA1TAB PO; -METO5TAB2 PO; -PROM25TA14 PO; -SERT20OR PO; -creon; -metroNIDAZOLE 500 MG/100 ML NS IVPB ONE
[2017-06-01] MEDS ORDERED: ONDANSETRON 4 MG INJ IV STA (13:23)
[2017-06-01] MEDS ORDERED: morphine 4 MG/ML VIAL IV STA (13:23)
[2017-06-01 13:49] LABS: BASOPHIL # 0.1 10^3/ul (0.0-0.1); BASOPHILS % 0.6 % (0.0-2.0); EOSINOPHILS # 0.1 10^3/ul (0.0-0.5); EOSINOPHILS % 0.6 % (0.0-7.0); HEMATOCRIT 36.2 % (37.0-47.0); HEMOGLOBIN 12.3 g/dl (12.0-16.0); LYMPHOCYTES # 2.1 10^3/ul (0.8-2.9); LYMPHOCYTES % 23.9 % (15.0-51.0); MEAN CORPUSCULAR HEMOGLOBIN 34.1 pg (29.0-33.0); MEAN CORPUSCULAR VOLUME 100.3 fl (82.0-101.0); MEAN PLATELET VOLUME 8.9 fl (7.4-10.4); MONOCYTE # 0.6 10^3/ul (0.3-0.9); NEUTROPHILS % 67.8 % (39.0-77.0); PLATELET COUNT 475 10^3/UL (140-415); RED BLOOD COUNT 3.61 10^6/ul (4.20-5.40); RED CELL DISTRIBUTION WIDTH 12.7 % (11.5-14.5); WHITE BLOOD COUNT 8.8 10^3/ul (4.8-10.8)
[2017-06-01 14:09] LABS: ALBUMIN 4.3 g/dl (3.3-4.9); ALBUMIN/GLOBULIN RATIO 1.34; BILIRUBIN,INDIRECT 0.5 mg/dl (0-1.1); BILIRUBIN,TOTAL 0.5 mg/dl (0.2-1.3); CALCIUM 9.1 mg/dl (8.4-10.2); CREATININE 0.74 mg/dl (0.44-1.00); POTASSIUM 3.6 mmol/L (3.5-5.1); TOTAL PROTEIN 7.5 g/dl (6.1-8.1)
[2017-06-01] MEDS ORDERED: HYDROmorphONE 1 MG/ML SYG IV STA ×2 (14:16→17:10)
[2017-06-01 14:24] LABS: ADD UMIC YES; UR ASCORBIC ACID NEGATIVE (NEGATIVE); UR BILIRUBIN (Dip) NEGATIVE (NEGATIVE); UR BLOOD (Dip) 3+ mg/dL (NEGATIVE); UR CLARITY CLEAR (CLEAR); UR COLOR AMBER (YELLOW); UR GLUCOSE (Dip) NEGATIVE (NEGATIVE); UR KETONES (Dip) NEGATIVE (NEGATIVE); UR LEUKOCYTE ESTERASE (Dip) NEGATIVE Leu/ul (NEGATIVE); UR MUCUS FEW /HPF (NONE SEEN); UR NITRITE (Dip) POSITIVE (NEGATIVE); UR RBC > 182 /HPF (0-5); UR SPECIFIC GRAVITY (Dip) 1.014 (1.003-1.030); UR SQUAMOUS EPITHELIAL CELL FEW /HPF (FEW); UR TOTAL PROTEIN (Dip) 1+ mg/dl (NEGATIVE); UR UROBILINOGEN (Dip) 2+ mg/dL (NEGATIVE)
--- NOTE | 2017-06-01 15:14 | ERA ---
ER Documentation Chief Complaint Date/Time DATE: 06/01/17 TIME: 15:10 Chief Complaint pain at catheter site x 4 days HPI 42-year-old female complaining of suprapubic pain and urethral pain 4 days. Pain is constant and severe. Patient had undergone emergency hysterectomy by Dr. Huerta 2 weeks ago. Patient states that the surgeon had "nicked her bladder" due to surgery. Borja catheter was placed for her. Patient reports urine leaking from her Borja catheter. She was told by her surgeon to take Pyridium for pain, but he had not helped. Her pain has gotten much worse today. Denies fever or chills. ROS All systems reviewed and are negative except as per history of present illness. Medications Home Meds Reported Medications Ciprofloxacin Hcl* (Ciprofloxacin Hcl*) 500 Mg Tablet, 500 MG PO BID for 10 Days , #5 TAB END DATE 06/04/17 06/01/17 Ondansetron Hcl* (Zofran*) 8 Mg Tab, 8 MG PO Q6H Y for NAUSEA AND OR VOMITING, TAB 06/01/17 Lorazepam* (Lorazepam*) 1 Mg Tablet, 1 MG PO HS Y for ANXIETY, #30 TAB 06/01/17 Aripiprazole* (Abilify*) 10 Mg Tablet, 10 MG PO DAILY, #30 TAB 06/01/17 Bupropion Hcl* (Wellbutrin XL*) 300 Mg Tab.sr.24h, 300 MG PO DAILY, TAB.SA 06/01/17 Bupropion Hcl* (Wellbutrin XL*) 150 Mg Tab.sr.24h, 150 MG PO DAILY, TAB.SA 06/01/17 Discontinued Reported Medications Lorazepam* (Lorazepam*) 1 Mg Tablet, 1 MG PO HS, #30 TAB 05/20/17 Oxycodone HCl/Acetaminophen (Percocet 10-325 mg Tablet) 1 Each Tablet, 1 EACH PO Y for PAIN, TAB 09/16/16 Aripiprazole* (Abilify*) 5 Mg Tab, 5 MG PO DAILY, #30 TAB 09/16/16 Bupropion Hcl* (Wellbutrin XL*) 150 Mg Tab.sr.24h, 450 MG PO DAILY, TAB.SA 06/26/15 Ondansetron Hcl* (Zofran*) 8 Mg Tablet, 8 MG PO Q6H Y for NAUSEA AND OR VOMITING , TAB 04/01/15 Allergies Allergies: Coded Allergies: Sulfa (Sulfonamide Antibiotics) (Verified Allergy, Severe, RASH, 06/01/17) Penicillins (Verified Allergy, Unknown, 06/01/17) PMhx/Soc History of Surgery: Yes (BTL,CHOLECYSTECTOMY, HYSTERECTOMY 05/20/17) Anesthesia Reaction: No Hx Neurological Disorder: No Hx Respiratory Disorders: No Hx Cardiac Disorders: No Hx Psychiatric Problems: Yes (ANXIETY/DEPRESSION) Hx Miscellaneous Medical Probl: Yes (CHRONIC PAIN SYNDROME ,VIT D DEF, PANCREATITIS) Hx Alcohol Use: No Hx Substance Use: No Hx Tobacco Use: Yes Smoking Status: Current every day smoker Physical Exam Vitals Vital Signs Date Time Temp Pulse Resp B/P Pulse Ox O2 Delivery O2 Flow Rate FiO2 06/01/17 12:31 98.4 136 22 147/93 98 Physical Exam General: Well-developed, well-nourished, conscious and coherent. Appears to be extremely uncomfortable due to pain, unable to sit or lying comfortably Skin: Warm and dry without rash, good texture and turgor Head: Normocephalic without evidence of trauma Eyes: Sclera and conjunctivae normal; pupils equal, round, and reactive to light; extraocular movements are intact Chest: Normal AP diameter. Good expansion without retractions. Nontender. Lungs are clear to auscultate bilaterally with good tidal volume Heart: Regular rate and rhythm. No murmur, rub, or gallops heard Abdomen: Soft and nontender without masses, guarding, or rebound. Bowel sounds are active. No hepatosplenomegaly Back: Without spinal or CVA tenderness Pelvis: Suprapubic tenderness Extremities: Full range of motion. Good strength bilaterally. No clubbing, cyanosis, or edema. Peripheral pulses are intact. Sensation intact Neuro: Alert and oriented 4, GCS 15. Cranial nerves grossly intact. Motor and sensory exams nonfocal. Moves all extremities. Speech clear. Gait normal Result Diagram: 06/01/17 1340 06/01/17 1340 Results 24 hrs Laboratory Tests Test 06/01/17 13:40 06/01/17 15:20 White Blood Count 8.810^3/ul Red Blood Count 3.6110^6/ul Hemoglobin 12.3g/dl Hematocrit 36.2% Mean Corpuscular Volume 100.3fl Mean Corpuscular Hemoglobin 34.1pg Mean Corpuscular Hemoglobin Concent 34.0g/dl Red Cell Distribution Width 12.7% Platelet Count 37215^3/UL Mean Platelet Volume 8.9fl Neutrophils % 67.8% Lymphocytes % 23.9% Monocytes % 7.0% Eosinophils % 0.6% Basophils % 0.6% Nucleated Red Blood Cells % 0.0/100WBC Neutrophils # 6.010^3/ul Lymphocytes # 2.110^3/ul Monocytes # 0.610^3/ul Eosinophils # 0.110^3/ul Basophils # 0.110^3/ul Nucleated Red Blood Cells # 0.010^3/ul Urine Color RAMONE Urine Clarity CLEAR Urine pH 6.0 Urine Specific [place] 1.014 Urine Ketones NEGATIVEmg/dL Urine Nitrite POSITIVEmg/dL Urine Bilirubin NEGATIVEmg/dL Urine Urobilinogen 2+mg/dL Urine Leukocyte Esterase NEGATIVELeu/ul Urine Microscopic RBC > 182/HPF Urine Microscopic WBC 12/HPF Urine Squamous Epithelial Cells FEW/HPF Urine Mucus FEW/HPF Urine Hemoglobin 3+mg/dL Urine Glucose NEGATIVEmg/dL Urine Total Protein 1+mg/dl Sodium Level 144mmol/L Potassium Level 3.6mmol/L Chloride Level 107mmol/L Carbon Dioxide Level 21mmol/L Anion Gap 20 Blood Urea Nitrogen 9mg/dl Creatinine 0.74mg/dl Glucose Level 93mg/dl Calcium Level 9.1mg/dl Total Bilirubin 0.5mg/dl Direct Bilirubin 0.00mg/dl Indirect Bilirubin 0.5mg/dl Aspartate Amino Transf (AST/SGOT) 18IU/L Alanine Aminotransferase (ALT/SGPT) 29IU/L Alkaline Phosphatase 65IU/L Total Protein 7.5g/dl Albumin 4.3g/dl Globulin 3.20g/dl Albumin/Globulin Ratio 1.34 Prothrombin Time 13.7Sec Prothrombin Time Ratio 1.1 INR International Normalized Ratio 1.05 Activated Partial Thromboplast Time 28.1Sec Current Medications Medications (Trade) Dose Ordered Sig/Lidia Route PRN Reason Start Time Stop Time Status Last Admin Dose Admin Morphine Sulfate (morphine) 4 mg ONCE STAT IV 06/01/17 13:23 06/01/17 13:26 DC 06/01/17 13:35 Ondansetron HCl (Zofran Inj) 4 mg ONCE STAT IV 06/01/17 13:23 06/01/17 13:26 DC 06/01/17 13:35 Hydromorphone HCl (Dilaudid) 1 mg ONCE STAT IV 06/01/17 14:16 06/01/17 14:17 DC 06/01/17 14:29 Morphine Sulfate (morphine) 4 mg ONCE ONCE IM 06/01/17 15:30 06/01/17 15:31 DC 06/01/17 15:44 Ketorolac Tromethamine 30 mg 30 mg ONCE STAT IV 06/01/17 15:40 06/01/17 15:41 DC 06/01/17 15:52 Ceftriaxone Sodium (Rocephin) 50 ml @ 100 mls/hr ONCE ONCE IVPB 06/01/17 16:00 06/01/17 16:29 06/01/17 15:52 Ondansetron HCl (Zofran Inj) 4 mg BRIDGE ORDER PRN IV NAUSEA AND/OR VOMITING 06/01/17 16:00 06/02/17 15:59 Acetaminophen (Tylenol Tab) 650 mg ER BRIDGE PRN PO MILD PAIN/FEVER 06/01/17 16:00 06/02/17 15:59 Procedures/MDM 42-year-old female presented ED with intractable suprapubic pain. She was given morphine 4 mg IV, Dilaudid 1 mg IV, and Toradol 30 mg IV in the ED for pain at various times. Her pain only resolved for 10-30 minutes after the medication. I have placed a call to patient's surgeon Dr. Huerta, who said to admit patient under Dr. Castellanos. CBC and CMP are unremarkable. UA has negative leukocyte, positive nitrite. Patient appears to have a urinary tract infection, likely secondary to indwelling catheter. Rocephin 1 g IV piggyback given to the patient in the ED. My attending Dr. Gonzalez spoke to Dr. Castellanos, who agreed to admit the patient. Departure Diagnosis: Primary Impression: Suprapubic pain Additional Impressions: Intractable pain UTI (urinary tract infection) Qualified Code: T83.511A - Urinary tract infection associated with indwelling urethral catheter, initial encounter Condition: Stable SARAHCOURTJOELJASEN Gunter NP Jun 01, 2017 15:13
[2017-06-01] MEDS ORDERED: morphine 10 MG INJ IM ONE (15:30)
[2017-06-01] MEDS ORDERED: BUPR-75 PO (15:37)
[2017-06-01] MEDS ORDERED: ARIP10TA13 PO (15:37)
[2017-06-01] MEDS ORDERED: BUPR300T48 PO (15:37)
[2017-06-01] MEDS ORDERED: LORA1TAB PO (15:38)
[2017-06-01] MEDS ORDERED: KETOROLAC 30 MG INJ IV STA (15:40)
[2017-06-01] MEDS ORDERED: ZOF8 PO (15:40)
[2017-06-01] MEDS ORDERED: CIPR500T4 PO (15:41)
[2017-06-01 15:52] LABS: INR 1.05; PROTIME 13.7 Sec (12.2-14.2); PT RATIO 1.1
[2017-06-01 15:53] LABS: PARTIAL THROMBOPLASTIN TIME 28.1 Sec (25.0-35.0)
[2017-06-01] MEDS ORDERED: CEFTRIAXONE 1 GM/50 ML (PMX) 50 ML IVPB ONE (16:00)
[2017-06-01] MEDS ORDERED: ACETAMINOPHEN 325 MG TAB PO PRN (16:00)
[2017-06-01] MEDS ORDERED: ONDANSETRON 4 MG INJ IV PRN (16:00)
[2017-06-01] MEDS ORDERED: METO10TA96 PO (16:12)
--- NOTE | 2017-06-01 18:09 | HP ---
Date/Time of Note Date/Time of Note DATE: 06/01/17 TIME: 17:51 Assessment/Plan VTE Prophylaxis VTE Prophylaxis Intervention: SCD's Assessment/Plan Assessment/Plan -Intractable suprapubic pain, Continue Zofran as needed for nausea, [place] and morphine as needed for pain. -Status post hysterectomy and salpingectomy, Dr. Huerta is following in surgical consultation. -Status post cystotomy repair, Dr. Brown, urology for possible suprapubic catheter insertion. -Urinary tract infection per UA, continue Rocephin follow-up on urine culture. -Depression -Bipolar disorder -Tobacco dependence. Further recommendations based on clinical course. Plan of care discussed with Dr. Castellanos. HPI/ROS Admit Date/Time Admit Date/Time Hx of Present Illness The patient is 42-year-old female who underwent laparoscopic hysterectomy and bilateral salpingectomy, and repair of cystotomy on May [address] Jihan Casarez. Patient recovered after surgery well and was discharged with Borja catheter in place. Patient developed developed significant abdominal pain, which was not relieved by Pyridium and p.o. medication. Patient stated her pain got significantly worse. Patient denies any fever and chills denies any nausea and vomiting, denies diarrhea. Patient will be admitted for further management and possible suprapubic catheter insertion. ROS 12 point review of system is negative unless for mentioned in HPI PMH/Family/Social Past Medical History Depression, bipolar disorder, uterine fibroids. Medical History: pancreatitis Past Surgical History Status post cholecystectomy, status post surgery for ectopic 2, status post tubal ligation, status drainage catheter insertion with history of pancreatitis and pseudocyst. Past Surgical Hx: cholecystectomy Family History Significant Family History: no pertinent family hx Social History Alcohol Use: none Smoking Status: Current every day smoker Drug Use: none Exam/Review of Systems Vital Signs Vitals Vital Signs Date Time Temp Pulse Resp B/P Pulse Ox O2 Delivery O2 Flow Rate FiO2 06/01/17 12:31 98.4 136 22 147/93 98 Exam Constitutional: alert, oriented Head: normocephalic Eyes: nl conjunctiva Neck: supple Respiratory: clear to auscultation Cardiovascular: nl pulses Gastrointestinal: non-tender, other (Suprapubic tenderness,), soft Genitourinary - Female: other (Borja) Musculoskeletal: nl extremities to inspection Extremities: normal pulses Neurological: nl mental status Skin: nl turgor, other Labs Result Diagram: 06/01/17 1340 06/01/17 1340 KAMILA VENTURA Jun 01, 2017 18:01
[2017-06-01] MEDS ORDERED: OXYCODONE/ACETAMINOPHEN (5/325) TAB PO PRN (18:30)
[2017-06-01] MEDS ORDERED: DOCUSATE SODIUM 100 MG CAP PO PRN (18:30)
[2017-06-01] MEDS: ONDANSETRON 4 MG INJ IV PRN ×2 (18:53→22:47)
[2017-06-01] MEDS ORDERED: 1/2 NS + KCL 20 MEQ 1,000 ML IV SCH (19:30)
--- NOTE | 2017-06-01 19:54 | CONS ---
Date/Time of Note Date/Time of Note DATE: 06/01/17 TIME: 19:53 Consultation Date/Type/Reason Admit Date/Time Reason for Consultation Silas Huerta M.D. 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 She was admitted with intractable pain. Past Medical History: Surgical: TL, Tubal x2, Gallbladder / Pancreatitis 2005 , ablation attempted Medical: Gastritis,Anxiety and Depression Flu no, declined, Pneumococcal no, declined Colonoscopy: yes, 03/2015 Medications: 03/18/17 Abilify 5 mg tablet 1 tablet by mouth DAILY 05/14/17 Bactrim DS 800 mg-160 mg tablet 1 tablet by mouth BID x 3 days 04/08/17 Flagyl 250 mg tablet 1 tablet by mouth as directed 1po qd x 2 days prio 04/08/17 Golytely 236 gram-22.74 gram-6.74 gram-5.86 gram oral solution 1 mL by mouth as directed begin bowel prep at 12pm 03/18/17 Imitrex 100 mg tablet 1 tablet by mouth Add'l Sig prn 04/08/17 Levaquin 250 mg tablet 1 tablet by mouth as directed 1po qd x 2 days prio 03/18/17 Percocet 10 mg-325 mg tablet 1 tablet by mouth Add'l Sig prn 03/18/17 Wellbutrin XL 300 mg 24 hr tablet, extended release 450 mg daily 03/18/17 Zofran 8 mg tablet 1 tablet by mouth Add'l Sig prn Allergies: No active allergies recorded Family Hx: non-contributary Social HX: non-contributary ROS: as above Physical Examination Vitals (05/31/2017): Weight 163, Height 63, BP 118/64, BMI 28.9. General: Alert. HEENT: Pupils are equal, round, reactive to light and accommodation. Neck: Supple with no masses of lymphadenopathy. Breast: Deferred due to recent examination and responsibility of primary care physician. Chest: Clear to auscultation Heart: Normal rhythm with no murmur. Abdomen: Non tender, no ascites nor organomeglay. Pelvic exam: vagina healing well Rectal: confirmatory with pelvic exam. Neurological: Grossly intact but very emotional Assessment: s/p TLH, emotional issues, Pain due to Borja but drainage manditory Plan: Placement of S/P cath as ongoing drainage of urine to prevent bladder distension is ESSENTIAL to assure healing. Will keep in 4-6 weeks before bladder training and cystogram; due to tissue qulity and location. All risks and benefits of this procedure have been discussed in detail with the patient, as well as alternative treatment strategies and their implications. The patient is aware that there is some possibility of a blood transfusion and its associated risks and benefits. She wishes to proceed and gives her informed consent. Silas Huerta M.D. Past Medical History Medical History: pancreatitis Past Surgical History Past Surgical Hx: cholecystectomy Social History Alcohol Use: none Smoking Status: Current every day smoker Drug Use: none Exam/Review of Systems Vital Signs Vitals Vital Signs Date Time Temp Pulse Resp B/P Pulse Ox O2 Delivery O2 Flow Rate FiO2 06/01/17 12:31 98.4 136 22 147/93 98 Results Result Diagram: 06/01/17 1340 06/01/17 1340 Results 24 hrs Laboratory Tests Test 06/01/17 13:40 06/01/17 15:20 White Blood Count 8.8 Red Blood Count 3.61 L Hemoglobin 12.3 Hematocrit 36.2 L Mean Corpuscular Volume 100.3 Mean Corpuscular Hemoglobin 34.1 H Mean Corpuscular Hemoglobin Concent 34.0 Red Cell Distribution Width 12.7 Platelet Count 475 #H Mean Platelet Volume 8.9 Neutrophils % 67.8 Lymphocytes % 23.9 Monocytes % 7.0 Eosinophils % 0.6 Basophils % 0.6 Nucleated Red Blood Cells % 0.0 Neutrophils # 6.0 Lymphocytes # 2.1 Monocytes # 0.6 Eosinophils # 0.1 Basophils # 0.1 Nucleated Red Blood Cells # 0.0 Urine Color RAMONE Urine Clarity CLEAR Urine pH 6.0 Urine Specific [place] 1.014 Urine Ketones NEGATIVE Urine Nitrite POSITIVE A Urine Bilirubin NEGATIVE Urine Urobilinogen 2+ H Urine Leukocyte Esterase NEGATIVE Urine Microscopic RBC > 182 H Urine Microscopic WBC 12 H Urine Squamous Epithelial Cells FEW Urine Mucus FEW A Urine Hemoglobin 3+ H Urine Glucose NEGATIVE Urine Total Protein 1+ H Sodium Level 144 Potassium Level 3.6 Chloride Level 107 Carbon Dioxide Level 21 Anion Gap 20 H Blood Urea Nitrogen 9 Creatinine 0.74 Glucose Level 93 Calcium Level 9.1 Total Bilirubin 0.5 Direct Bilirubin 0.00 Indirect Bilirubin 0.5 Aspartate Amino Transf (AST/SGOT) 18 Alanine Aminotransferase (ALT/SGPT) 29 Alkaline Phosphatase 65 Total Protein 7.5 Albumin 4.3 Globulin 3.20 Albumin/Globulin Ratio 1.34 Prothrombin Time 13.7 Prothrombin Time Ratio 1.1 INR International Normalized Ratio 1.05 Activated Partial Thromboplast Time 28.1 Medications Medications Current Medications Aripiprazole (Abilify) 10 mg DAILY PO ; Start 06/02/17 at 09:00 Bupropion HCl (Wellbutrin Xl) 150 mg DAILY PO ; Start 06/02/17 at 09:00 Ondansetron HCl (Zofran Inj) 4 mg Q4H PRN IV NAUSEA AND/OR VOMITING Last administered on 06/01/17t 18:53; Admin Dose 4 MG; Start 06/01/17 at 18:30 Oxycodone/ Acetaminophen (Percocet (5/ 325)) 1 tab Q6H PRN PO MODERATE PAIN LEVEL 4-6; Start 06/01/17 at 18:30 Morphine Sulfate (morphine) 2 mg Q4H PRN IV SEVERE PAIN LEVEL 7-10; Start at 18:30 Docusate Sodium (Colace) 100 mg Q12H PRN PO CONSTIPATION; Start 06/01/17 at 18: 30 Famotidine 20 mg 20 mg Q12 PO ; Start 06/01/17 at 21:00 Ceftriaxone Sodium (Rocephin) 50 ml @ 100 mls/hr Q24H IVPB ; Start 06/02/17 at 16:00 Mupirocin 1 applic 1 applic DAILY TOP ; Start 06/01/17 at 20:00 Potassium Chloride/Dextrose/ Sod Cl (D5-1/2ns + KCl 20 Meq) 1,000 ml @ 100 mls/ hr Q10H IV ; Start 06/01/17 at 20:00 SILAS HUERTA MD Jun 01, 2017 19:54
[2017-06-01] MEDS ORDERED: D5W-0.45 NACL + KCL 20 MEQ 1,000 ML IV SCH (20:00)
[2017-06-01 20:02] VITALS: BP 117/66; RESP 16
[2017-06-01 20:15] VITALS: Ht 160 cm; Wt 88.9 kg
[2017-06-01] MEDS: morphine 2 MG INJ IV PRN (20:30)
[2017-06-01] MEDS: MUPIROCIN 2% 22 GM OINT TOP SCH (21:23)
[2017-06-01] MEDS: FAMOTIDINE 20 MG TAB PO SCH (21:23)
[2017-06-01] MEDS: D5W-0.45 NACL + KCL 20 MEQ 1,000 ML IV SCH (22:50)
[2017-06-01] MEDS ORDERED: LORAZEPAM 2 MG INJ IV PRN (23:00)
[2017-06-01] MEDS ORDERED: SUMATRIPTAN 50 MG TAB PO ONE (23:00)
[2017-06-02] MEDS ORDERED: SUMATRIPTAN 50 MG TAB PO PRN (01:00)
[2017-06-02] MEDS: morphine 2 MG INJ IV PRN ×6 (02:20→20:48)
[2017-06-02 02:55] VITALS: BP 121/62; RESP 16
[2017-06-02] MEDS: ONDANSETRON 4 MG INJ IV PRN ×4 (07:07→23:40)
[2017-06-02 08:29] VITALS: BP 126/70; RESP 18
[2017-06-02] MEDS: FAMOTIDINE 20 MG TAB PO SCH ×2 (09:00→20:49)
[2017-06-02] MEDS: ARIPIPRAZOLE 10 MG TAB PO SCH (09:00)
[2017-06-02] MEDS: BUPROPION (XL) 150 MG TAB PO SCH (09:00)
[2017-06-02] MEDS: MUPIROCIN 2% 22 GM OINT TOP SCH (09:15)
[2017-06-02] MEDS: DIPHENHYDRAMINE 50 MG INJ IV PRN ×2 (09:50→18:46)
[2017-06-02] MEDS: LORAZEPAM 2 MG INJ IV PRN ×2 (11:24→17:51)
[2017-06-02 14:53] VITALS: BP 122/66; RESP 16
[2017-06-02] MEDS: D5W-0.45 NACL + KCL 20 MEQ 1,000 ML IV SCH (15:29)
[2017-06-02] MEDS: CEFTRIAXONE 1 GM/50 ML (PMX) 50 ML IVPB SCH (15:29)
--- NOTE | 2017-06-02 16:22 | PN ---
Date/Time of Note Date/Time of Note DATE: 06/02/17 TIME: 16:16 Assessment/Plan VTE Prophylaxis VTE Prophylaxis Intervention: SCD's Lines/Catheters IV Catheter Type (from Nrsg): Peripheral IV Urinary Cath still in place: Yes Reason Cath still needed: urinary retention Assessment/Plan Chief Complaint/Hosp Course Patient's pain is better controlled, plan for surgical intervention by Dr. Huerta tomorrow Assessment/Plan -Intractable suprapubic pain, Continue Zofran as needed for nausea, [place] and morphine as needed for pain. -Status post hysterectomy and salpingectomy, Dr. Huerta is following in surgical consultation. -Status post cystotomy repair, plan for suprapubic catheter insertion tomorrow by surgery -Urinary tract infection per UA, continue Rocephin follow-up on urine culture. -Bipolar disorder, continue Abilify and Wellbutrin -Tobacco dependence. Tobacco cessation is strongly advised. Further recommendations based on clinical course. Plan of care discussed with Dr. Castellanos. Problems: Exam/Review of Systems Vital Signs Vitals Vital Signs Date Time Temp Pulse Resp B/P Pulse Ox O2 Delivery O2 Flow Rate FiO2 06/02/17 14:53 98.3 71 16 122/66 94 Intake and Output 06/01/17 06/01/17 06/02/17 15:00 23:00 07:00 Intake Total 280 ml 350 ml Output Total 400 ml Balance 280 ml -50 ml Exam Constitutional: alert, oriented Respiratory: clear to auscultation Cardiovascular: nl pulses Gastrointestinal: non-tender, other (Suprapubic tenderness,), soft Genitourinary - Female: other (Borja) Extremities: normal pulses Results Result Diagram: 06/01/17 1340 06/01/17 1340 Medications Medications Current Medications Aripiprazole (Abilify) 10 mg DAILY PO ; Start 06/02/17 at 09:00 Bupropion HCl (Wellbutrin Xl) 150 mg DAILY PO ; Start 06/02/17 at 09:00 Ondansetron HCl (Zofran Inj) 4 mg Q4H PRN IV NAUSEA AND/OR VOMITING Last administered on 06/02/17t 15:30; Admin Dose 4 MG; Start 06/01/17 at 18:30 Oxycodone/ Acetaminophen (Percocet (5/ 325)) 1 tab Q6H PRN PO MODERATE PAIN LEVEL 4-6; Start 06/01/17 at 18:30 Docusate Sodium (Colace) 100 mg Q12H PRN PO CONSTIPATION; Start 06/01/17 at 18: 30 Famotidine 20 mg 20 mg Q12 PO Last administered on 06/01/17 21:23; Admin Dose 20 MG; Start 06/01/17 at 21:00 Ceftriaxone Sodium (Rocephin) 50 ml @ 100 mls/hr Q24H IVPB Last administered on 06/02/17 15:29; Admin Dose 100 MLS/HR; Start 06/02/17 at 16:00 Mupirocin 1 applic 1 applic DAILY TOP Last administered on 06/02/17 09:15; Admin Dose 1 APPLIC; Start 06/01/17 at 20:00 Potassium Chloride/Dextrose/ Sod Cl (D5-1/2ns + KCl 20 Meq) 1,000 ml @ 50 mls/ hr Q20H IV Last administered on 06/02/17 15:29; Admin Dose 50 MLS/HR; Start 06/01/17 at 23:00 Diphenhydramine HCl (Benadryl) 25 mg Q6H PRN IV ITCHING Last administered on 09:50; Admin Dose 25 MG; Start 06/01/17 at 23:00 Morphine Sulfate (morphine) 2 mg Q3 PRN IV SEVERE PAIN LEVEL 7-10 Last administered on 06/02/17 13:26; Admin Dose 2 MG; Start 06/02/17 at 12:00 Lorazepam (Ativan) 0.5 mg Q6H PRN IV anxiety Last administered on 06/02/17 11: 24; Admin Dose 0.5 MG; Start 06/02/17 at 11:00 KAMILA VENTURA Jun 02, 2017 16:22
[2017-06-02] MEDS ORDERED: METOCLOPRAMIDE 10 MG INJ IV SCH (18:30)
[2017-06-02] MEDS: METOCLOPRAMIDE 10 MG INJ IV PRN (18:46)
[2017-06-02 19:39] VITALS: BP 110/65; RESP 18
--- NOTE | 2017-06-02 23:04 | PN ---
Date/Time of Note Date/Time of Note DATE: 06/02/17 TIME: 23:01 Assessment/Plan VTE Prophylaxis VTE Prophylaxis Intervention: SCD's Lines/Catheters IV Catheter Type (from Nrsg): Peripheral IV Urinary Cath still in place: Yes Reason Cath still needed: other (indicate) Assessment/Plan Chief Complaint/Hosp Course A- depresion, bipolar, pain P- reiterated need for s/p cath and what is is and plan for ongoing bladder rest and plan to do . Problems: Subjective 24 Hr Interval Summary Free Text/Dictation Ongoing pain and emotional issued due to mental illness. Exam/Review of Systems Vital Signs Vitals Vital Signs Date Time Temp Pulse Resp B/P Pulse Ox O2 Delivery O2 Flow Rate FiO2 06/02/17 19:39 98.8 72 18 110/65 96 Intake and Output 06/01/17 06/01/17 06/02/17 15:00 23:00 07:00 Intake Total 280 ml 350 ml Output Total 400 ml Balance 280 ml -50 ml Exam Resp- no pain and even CVS- NSR Abd- minimal pain s/p Ext- NT no edema Results Result Diagram: 06/01/17 1340 06/01/17 1340 Medications Medications Current Medications Aripiprazole (Abilify) 10 mg DAILY PO ; Start 06/02/17 at 09:00 Bupropion HCl (Wellbutrin Xl) 150 mg DAILY PO ; Start 06/02/17 at 09:00 Ondansetron HCl (Zofran Inj) 4 mg Q4H PRN IV NAUSEA AND/OR VOMITING Last administered on 06/02/17 15:30; Admin Dose 4 MG; Start 06/01/17 at 18:30 Oxycodone/ Acetaminophen (Percocet (5/ 325)) 1 tab Q6H PRN PO MODERATE PAIN LEVEL 4-6; Start 06/01/17 at 18:30 Docusate Sodium (Colace) 100 mg Q12H PRN PO CONSTIPATION; Start 06/01/17 at 18: 30 Famotidine 20 mg 20 mg Q12 PO Last administered on 06/01/17 21:23; Admin Dose 20 MG; Start 06/01/17 at 21:00 Ceftriaxone Sodium (Rocephin) 50 ml @ 100 mls/hr Q24H IVPB Last administered on 06/02/17 15:29; Admin Dose 100 MLS/HR; Start 06/02/17 at 16:00 Mupirocin 1 applic 1 applic DAILY TOP Last administered on 06/02/17 09:15; Admin Dose 1 APPLIC; Start 06/01/17 at 20:00 Potassium Chloride/Dextrose/ Sod Cl (D5-1/2ns + KCl 20 Meq) 1,000 ml @ 50 mls/ hr Q20H IV Last administered on 06/02/17 15:29; Admin Dose 50 MLS/HR; Start 06/01/17 at 23:00 Diphenhydramine HCl (Benadryl) 25 mg Q6H PRN IV ITCHING Last administered on 18:46; Admin Dose 25 MG; Start 06/01/17 at 23:00 Lorazepam (Ativan) 0.5 mg Q6H PRN IV anxiety Last administered on 06/02/17 17: 51; Admin Dose 0.5 MG; Start 06/02/17 at 11:00 Morphine Sulfate (morphine) 3 mg Q3 PRN IV SEVERE PAIN LEVEL 7-10 Last administered on 06/02/17 20:48; Admin Dose 3 MG; Start 06/02/17 at 17:00 Metoclopramide HCl (Reglan) 10 mg Q6H PRN IV nausea Last administered on 18:46; Admin Dose 10 MG; Start 06/02/17 at 18:30 DERICK FARAH MD Jun 02, 2017 23:04
[2017-06-03] MEDS: morphine 2 MG INJ IV PRN ×6 (00:09→22:00)
[2017-06-03 02:08] VITALS: BP 88/51; RESP 18
[2017-06-03 03:56] VITALS: BP 102/65; PULSE 65
[2017-06-03] MEDS: DIPHENHYDRAMINE 50 MG INJ IV PRN ×2 (05:57→20:20)
[2017-06-03 06:50] LABS: BASOPHILS % 0.6 % (0.0-2.0); EOSINOPHILS # 0.1 10^3/ul (0.0-0.5); HEMATOCRIT 35.4 % (37.0-47.0); LYMPHOCYTES # 1.5 10^3/ul (0.8-2.9); LYMPHOCYTES % 21.4 % (15.0-51.0); MEAN CORPUSCULAR HEMOGLOBIN 34.4 pg (29.0-33.0); MEAN CORPUSCULAR HGB CONC 33.9 g/dl (32.0-37.0); MEAN CORPUSCULAR VOLUME 101.4 fl (82.0-101.0); MONOCYTE # 0.7 10^3/ul (0.3-0.9); MONOCYTES % 9.6 % (0.0-11.0); NEUTROPHIL # 4.6 10^3/ul (1.6-7.5); NEUTROPHILS % 67.3 % (39.0-77.0); PLATELET COUNT 465 10^3/UL (140-415); RED BLOOD COUNT 3.49 10^6/ul (4.20-5.40); RED CELL DISTRIBUTION WIDTH 12.7 % (11.5-14.5); WHITE BLOOD COUNT 6.8 10^3/ul (4.8-10.8)
[2017-06-03 07:03] LABS: CALCIUM 8.5 mg/dl (8.4-10.2); CREATININE 0.73 mg/dl (0.44-1.00); POTASSIUM 3.9 mmol/L (3.5-5.1)
[2017-06-03 08:02] VITALS: BP 121/67; RESP 16
[2017-06-03] MEDS: ARIPIPRAZOLE 10 MG TAB PO SCH (08:30)
[2017-06-03] MEDS: FAMOTIDINE 20 MG TAB PO SCH ×2 (08:31→20:20)
[2017-06-03] MEDS: BUPROPION (XL) 150 MG TAB PO SCH (08:31)
[2017-06-03] MEDS: METOCLOPRAMIDE 10 MG INJ IV PRN (09:14)
[2017-06-03] MEDS: MUPIROCIN 2% 22 GM OINT TOP SCH (09:15)
[2017-06-03] MEDS: LORAZEPAM 2 MG INJ IV PRN ×2 (10:43→22:00)
[2017-06-03] MEDS ORDERED: ACETAMINOPHEN 1000MG/100ML IV 100 ML IVPB STA (13:34)
[2017-06-03] MEDS ORDERED: BELLADONNA ALK/OPIUM SUPP PR PRN (14:00)
[2017-06-03] MEDS: D5W-0.45 NACL + KCL 20 MEQ 1,000 ML IV SCH ×2 (15:00→18:49)
--- NOTE | 2017-06-03 15:40 | HPN ---
Date/Time of Note Date/Time of Note DATE: 06/03/17 TIME: 15:40 Interval H&P Admission Note Pt. seen H&P reviewed: No system changes DERICK FARAH MD Jun 03, 2017 15:40
[2017-06-03] MEDS ORDERED: BUPIVACAINE 0.25% (MPF) 30 ML INJ ONE (15:43)
[2017-06-03] MEDS ORDERED: BUPIVACAINE 0.25%/EPI (SDV) 10 ML INJ ONE (15:43)
[2017-06-03] MEDS ORDERED: METHYLENE BLUE 1% 10 ML INJ ONE (15:43)
[2017-06-03] MEDS ORDERED: MIDAZOLAM 1 MG/ML 2 ML INJ ONE (15:44)
[2017-06-03] MEDS ORDERED: LIDOCAINE 2% (SDV) 5 ML INJ ONE (15:44)
[2017-06-03] MEDS ORDERED: PROPOFOL 20 ML ONE (15:44)
[2017-06-03] MEDS ORDERED: FENTAnyl 50 MCG/ML VIAL ONE ×2 (15:44→16:40)
[2017-06-03] MEDS: CEFTRIAXONE 1 GM/50 ML (PMX) 50 ML IVPB SCH (16:00)
[2017-06-03] MEDS ORDERED: ONDANSETRON 4 MG INJ ONE (16:12)
[2017-06-03] MEDS ORDERED: METOCLOPRAMIDE 10 MG INJ ONE (16:13)
[2017-06-03] MEDS ORDERED: DEXAMETHASONE 4 MG/ML 1 ML INJ ONE (16:13)
[2017-06-03] MEDS ORDERED: KETOROLAC 30 MG INJ ONE (16:44)
[2017-06-03] MEDS ORDERED: MEPERIDINE 25 MG INJ IV PRN (17:00)
[2017-06-03] MEDS ORDERED: hydrALAzine 20 MG INJ IV PRN (17:00)
[2017-06-03] MEDS ORDERED: MIDAZOLAM 1 MG/ML 2 ML INJ IV PRN (17:00)
[2017-06-03] MEDS ORDERED: ONDANSETRON 4 MG INJ IV PRN (17:00)
[2017-06-03] MEDS ORDERED: DIPHENHYDRAMINE 50 MG INJ IV PRN (17:00)
[2017-06-03] MEDS ORDERED: LABETALOL HCL 20MG INJ IV PRN (17:00)
[2017-06-03] MEDS ORDERED: LORAZEPAM 2 MG INJ IV PRN (17:00)
[2017-06-03] MEDS ORDERED: OXYCODONE/ACETAMINOPHEN (5/325) TAB PO PRN ×2 (17:00)
[2017-06-03] MEDS ORDERED: FENTAnyl 50 MCG/ML VIAL IV PRN (17:00)
[2017-06-03] MEDS ORDERED: HYDROmorphONE (0.2 MG/ML) 10ML SYG IV PRN (17:00)
[2017-06-03] MEDS ORDERED: PROCHLORPERAZINE 10 MG INJ IV PRN (17:00)
[2017-06-03 17:07] VITALS: BP 118/83; RESP 18
[2017-06-03] MEDS: HYDROmorphONE (0.2 MG/ML) 10ML SYG IV PRN ×3 (17:28→18:22)
--- NOTE | 2017-06-03 17:37 | OPR ---
Date/Time of Note Date/Time of Note DATE: 06/03/17 TIME: 17:37 Operative Report Free Text/Dictation OPERATIVE REPORT [facility] Name: Crys Ag Date: 06/03/17 Preoperative Diagnosis: 1-S/P intra-op cystotomy repaired 2- pain due to catheter Postoperative Diagnosis: same Procedures: Insertion of supra-pubic catheter Surgeon: Dr. Huerta Anaesthesia: General (light) Findings and Procedure: After being prepped and draped an EUA was performed with the finding adequate healing. The bladder was instilled with 200 ml saline and methylene blue and located suprapubically with a 22g spinal needle. The supra-pubic catheter was placed through a small incision and the obturator removed after which the Borja filled with 10ml water and previously place methylene blue removed. The supra- pubic catheter was sutured in place with 2-0 Prolene suture The patient tolerated the procedure well and left the OR in good condition with her Borja removed. Pankaj Bonilla SCOTT M MD Jun 03, 2017 17:37
[2017-06-03 17:48] LABS: BASOPHILS % 0.5 % (0.0-2.0); EOSINOPHILS % 0.4 % (0.0-7.0); HEMATOCRIT 35.7 % (37.0-47.0); HEMOGLOBIN 12.2 g/dl (12.0-16.0); LYMPHOCYTES # 0.9 10^3/ul (0.8-2.9); LYMPHOCYTES % 11.1 % (15.0-51.0); MEAN CORPUSCULAR HEMOGLOBIN 34.4 pg (29.0-33.0); MEAN CORPUSCULAR HGB CONC 34.2 g/dl (32.0-37.0); MEAN CORPUSCULAR VOLUME 100.6 fl (82.0-101.0); MEAN PLATELET VOLUME 8.6 fl (7.4-10.4); MONOCYTE # 0.3 10^3/ul (0.3-0.9); MONOCYTES % 3.7 % (0.0-11.0); NEUTROPHIL # 6.8 10^3/ul (1.6-7.5); NEUTROPHILS % 83.9 % (39.0-77.0); PLATELET COUNT 424 10^3/UL (140-415); RED BLOOD COUNT 3.55 10^6/ul (4.20-5.40); RED CELL DISTRIBUTION WIDTH 12.3 % (11.5-14.5); WHITE BLOOD COUNT 8.1 10^3/ul (4.8-10.8)
[2017-06-03 18:12] LABS: CALCIUM 8.6 mg/dl (8.4-10.2); CREATININE 0.74 mg/dl (0.44-1.00); POTASSIUM 3.9 mmol/L (3.5-5.1)
[2017-06-03] MEDS: ONDANSETRON 4 MG INJ IV PRN (18:48)
[2017-06-03 19:42] VITALS: BP 103/68; RESP 16
--- NOTE | 2017-06-03 20:39 | PN ---
Date/Time of Note Date/Time of Note DATE: 06/03/17 TIME: 20:34 Assessment/Plan VTE Prophylaxis VTE Prophylaxis Intervention: other Lines/Catheters IV Catheter Type (from Nrs): Peripheral IV Urinary Cath still in place: Yes Reason Cath still needed: urinary retention Assessment/Plan Assessment/Plan -Intractable suprapubic pain, SP Suprapubic cath placement by Dr. Huerta today - per surgery -Status post hysterectomy and salpingectomy, Dr. Huerta is following in surgical consultation. -Status post cystotomy repair, plan for suprapubic catheter insertion tomorrow by surgery -Urinary tract infection per UA, continue Rocephin follow-up on urine culture. -Bipolar disorder, continue Abilify and Wellbutrin -Tobacco dependence. Tobacco cessation is strongly advised. Further recommendations based on clinical course. Plan of care discussed with Dr. Castellanos. Subjective 24 Hr Interval Summary Free Text/Dictation got back from Suprapubic cath. family at bed side- all Qs answered.dw staff Constitutional: requiring IVF, requiring O2 Cardiovascular: no complaints Gastrointestinal: no complaints Genitourinary: other Musculoskeletal: no complaints Exam/Review of Systems Vital Signs Vitals Vital Signs Date Time Temp Pulse Resp B/P Pulse Ox O2 Delivery O2 Flow Rate FiO2 06/03/17 20:16 98.4 06/03/17 17:07 18 118/83 99 Nasal Cannula 2.0 06/03/17 08:02 64 Intake and Output 06/02/17 06/02/17 06/03/17 15:00 23:00 07:00 Intake Total 870 ml 800 ml Output Total 600 ml 400 ml Balance 270 ml 400 ml Exam Constitutional: alert, oriented, well developed Respiratory: diminished breath sounds Gastrointestinal: soft Genitourinary - Female: other (sp suprapubic cath placement) Musculoskeletal: nl extremities to inspection Extremities: normal pulses Neurological: nl mental status, nl speech Results Result Diagram: 06/03/17 1740 06/03/17 174 Results 24 hrs Laboratory Tests Test 06/03/17 04:00 06/03/17 05:00 06/03/17 05:45 06/03/17 17:40 Urine Test NEGATIVE Sodium Level 143 142 Potassium Level 3.9 3.9 Chloride Level 106 105 Carbon Dioxide Level 23 24 Anion Gap 18 H 17 H Blood Urea Nitrogen 9 9 Creatinine 0.73 0.74 Glucose Level 91 87 Calcium Level 8.5 8.6 White Blood Count 6.8 # 8.1 Red Blood Count 3.49 L 3.55 L Hemoglobin 12.0 12.2 Hematocrit 35.4 L 35.7 L Mean Corpuscular Volume 101.4 H 100.6 Mean Corpuscular Hemoglobin 34.4 H 34.4 H Mean Corpuscular Hemoglobin Concent 33.9 34.2 Red Cell Distribution Width 12.7 12.3 Platelet Count 465 H 424 H Mean Platelet Volume 9.0 8.6 Neutrophils % 67.3 83.9 H Lymphocytes % 21.4 11.1 L Monocytes % 9.6 3.7 Eosinophils % 1.0 0.4 Basophils % 0.6 0.5 Nucleated Red Blood Cells % 0.0 0.0 Neutrophils # 4.6 6.8 Lymphocytes # 1.5 0.9 Monocytes # 0.7 0.3 Eosinophils # 0.1 0.0 Basophils # 0.0 0.0 Nucleated Red Blood Cells # 0.0 0.0 Medications Medications Current Medications Aripiprazole (Abilify) 10 mg DAILY PO Last administered on 06/03/17 08:30; Admin Dose 10 MG; Start 06/02/17 at 09:00 Bupropion HCl (Wellbutrin Xl) 150 mg DAILY PO Last administered on 06/03/17 08 :31; Admin Dose 150 MG; Start 06/02/17 at 09:00 Ondansetron HCl (Zofran Inj) 4 mg Q4H PRN IV NAUSEA AND/OR VOMITING Last administered on 06/03/17 18:48; Admin Dose 4 MG; Start 06/01/17 at 18:30 Oxycodone/ Acetaminophen (Percocet (5/ 325)) 1 tab Q6H PRN PO MODERATE PAIN LEVEL 4-6; Start 06/01/17 at 18:30 Docusate Sodium (Colace) 100 mg Q12H PRN PO CONSTIPATION; Start 06/01/17 at 18: 30 Famotidine 20 mg 20 mg Q12 PO Last administered on 06/03/17 20:20; Admin Dose 20 MG; Start 06/01/17 at 21:00 Ceftriaxone Sodium (Rocephin) 50 ml @ 100 mls/hr Q24H IVPB Last administered on 06/02/17 15:29; Admin Dose 100 MLS/HR; Start 06/02/17 at 16:00 Mupirocin 1 applic 1 applic DAILY TOP Last administered on 06/03/17 09:15; Admin Dose 1 APPLIC; Start 06/01/17 at 20:00 Potassium Chloride/Dextrose/ Sod Cl (D5-1/2ns + KCl 20 Meq) 1,000 ml @ 50 mls/ hr Q20H IV Last administered on 06/03/17 18:49; Admin Dose 50 MLS/HR; Start at 23:00 Diphenhydramine HCl (Benadryl) 25 mg Q6H PRN IV ITCHING Last administered on 20:20; Admin Dose 25 MG; Start 06/01/17 at 23:00 Lorazepam (Ativan) 0.5 mg Q6H PRN IV anxiety Last administered on 06/03/17 10: 43; Admin Dose 0.5 MG; Start 06/02/17 at 11:00 Morphine Sulfate (morphine) 3 mg Q3 PRN IV SEVERE PAIN LEVEL 7-10 Last administered on 06/03/17 18:48; Admin Dose 3 MG; Start 06/02/17 at 17:00 Metoclopramide HCl (Reglan) 10 mg Q6H PRN IV nausea Last administered on 09:14; Admin Dose 10 MG; Start 06/02/17 at 18:30 ALDA MURPHY Jun 03, 2017 20:39
[2017-06-04] MEDS: morphine 2 MG INJ IV PRN ×3 (01:10→06:37)
[2017-06-04 02:10] VITALS: BP 104/58; RESP 16
[2017-06-04] MEDS: DIPHENHYDRAMINE 50 MG INJ IV PRN ×3 (04:06→16:37)
[2017-06-04] MEDS: LORAZEPAM 2 MG INJ IV PRN ×3 (06:43→21:30)
[2017-06-04 07:30] VITALS: BP 117/75; RESP 16
[2017-06-04] MEDS ORDERED: morphine 2 MG INJ IV PRN (08:00)
[2017-06-04] MEDS: ARIPIPRAZOLE 10 MG TAB PO SCH (08:33)
[2017-06-04] MEDS: FAMOTIDINE 20 MG TAB PO SCH ×2 (08:33→20:09)
[2017-06-04] MEDS: BUPROPION (XL) 150 MG TAB PO SCH (08:33)
[2017-06-04] MEDS: MUPIROCIN 2% 22 GM OINT TOP SCH (08:38)
[2017-06-04] MEDS: morphine 4 MG/ML VIAL IV PRN ×2 (08:39→10:26)
[2017-06-04] MEDS: METOCLOPRAMIDE 10 MG INJ IV PRN (08:39)
[2017-06-04] MEDS ORDERED: morphine 4 MG/ML VIAL IV PRN (09:00)
[2017-06-04 11:46] LABS: BASOPHILS % 0.3 % (0.0-2.0); EOSINOPHILS % 0.1 % (0.0-7.0); HEMATOCRIT 36.6 % (37.0-47.0); HEMOGLOBIN 12.5 g/dl (12.0-16.0); LYMPHOCYTES # 1.7 10^3/ul (0.8-2.9); LYMPHOCYTES % 14.4 % (15.0-51.0); MEAN CORPUSCULAR HEMOGLOBIN 34.2 pg (29.0-33.0); MEAN CORPUSCULAR HGB CONC 34.2 g/dl (32.0-37.0); MONOCYTE # 0.8 10^3/ul (0.3-0.9); MONOCYTES % 6.7 % (0.0-11.0); NEUTROPHIL # 9.2 10^3/ul (1.6-7.5); NEUTROPHILS % 78.2 % (39.0-77.0); PLATELET COUNT 459 10^3/UL (140-415); RED BLOOD COUNT 3.66 10^6/ul (4.20-5.40); RED CELL DISTRIBUTION WIDTH 12.1 % (11.5-14.5); WHITE BLOOD COUNT 11.7 10^3/ul (4.8-10.8)
[2017-06-04 12:08] LABS: CALCIUM 8.8 mg/dl (8.4-10.2); CREATININE 0.72 mg/dl (0.44-1.00); POTASSIUM 4.2 mmol/L (3.5-5.1)
[2017-06-04] MEDS ORDERED: LIDOCAINE 2% JELLY 5 ML TOP ONE (13:00)
[2017-06-04] MEDS ORDERED: HYDROmorphONE 1 MG/ML SYG IV STA (13:00)
[2017-06-04] MEDS: D5W-0.45 NACL + KCL 20 MEQ 1,000 ML IV SCH (13:48)
[2017-06-04 14:12] VITALS: BP 116/68; RESP 18
--- NOTE | 2017-06-04 14:39 | PN ---
Date/Time of Note Date/Time of Note DATE: 06/04/17 TIME: 14:28 Assessment/Plan VTE Prophylaxis VTE Prophylaxis Intervention: SCD's Lines/Catheters IV Catheter Type (from Nrsg): Peripheral IV Urinary Cath still in place: Yes Reason Cath still needed: other (indicate) Assessment/Plan Chief Complaint/Hosp Course A- depresion, bipolar, pain P- reiterated need for s/p cath and what is is and plan for ongoing bladder rest and plan to do . Problems: Assessment/Plan A- s/p cath functioning and last JAYLIN minimal in bladder but patient suggests some drainage and ongoing pain. P- 1- insert silicon Borja if tolerated 2- Change to Dilaudid and MS Contin for now but consult with Dr. Pack 3- Reiterated reason to avoid fistula in detail Subjective 24 Hr Interval Summary Free Text/Dictation complains of ongoing discomfort and some vaginal leakage. Again, anxious and repetitive. Complains pain meds wear of too soon. Exam/Review of Systems Vital Signs Vitals Vital Signs Date Time Temp Pulse Resp B/P Pulse Ox O2 Delivery O2 Flow Rate FiO2 06/04/17 07:30 98.3 68 16 117/75 95 06/03/17 17:07 Nasal Cannula 2.0 Intake and Output 06/03/17 06/03/17 06/04/17 15:00 23:00 07:00 Intake Total 850 ml 670 ml Output Total 403 ml 800 ml Balance 447 ml -130 ml Exam Resp- no strain and even CVS- NSR Abd- mild tenderness around s/p site and no rebound Pelvis- vaginal cuff intact and entirely dry as well as entire vagina Results Result Diagram: 06/04/17 1120 06/04/17 1120 Results 24 hrs Laboratory Tests Test 06/03/17 17:40 06/04/17 11:20 White Blood Count 8.1 11.7 #H Red Blood Count 3.55 L 3.66 L Hemoglobin 12.2 12.5 Hematocrit 35.7 L 36.6 L Mean Corpuscular Volume 100.6 100.0 Mean Corpuscular Hemoglobin 34.4 H 34.2 H Mean Corpuscular Hemoglobin Concent 34.2 34.2 Red Cell Distribution Width 12.3 12.1 Platelet Count 424 H 459 H Mean Platelet Volume 8.6 9.0 Neutrophils % 83.9 H 78.2 H Lymphocytes % 11.1 L 14.4 L Monocytes % 3.7 6.7 Eosinophils % 0.4 0.1 Basophils % 0.5 0.3 Nucleated Red Blood Cells % 0.0 0.0 Neutrophils # 6.8 9.2 H Lymphocytes # 0.9 1.7 Monocytes # 0.3 0.8 Eosinophils # 0.0 0.0 Basophils # 0.0 0.0 Nucleated Red Blood Cells # 0.0 0.0 Sodium Level 142 141 Potassium Level 3.9 4.2 Chloride Level 105 105 Carbon Dioxide Level 24 24 Anion Gap 17 H 16 Blood Urea Nitrogen 9 9 Creatinine 0.74 0.72 Glucose Level 87 84 Calcium Level 8.6 8.8 Medications Medications Current Medications Aripiprazole (Abilify) 10 mg DAILY PO Last administered on 06/04/17 08:33; Admin Dose 10 MG; Start 06/02/17 at 09:00 Bupropion HCl (Wellbutrin Xl) 150 mg DAILY PO Last administered on 06/04/17 08 :33; Admin Dose 150 MG; Start 06/02/17 at 09:00 Ondansetron HCl (Zofran Inj) 4 mg Q4H PRN IV NAUSEA AND/OR VOMITING Last administered on 06/03/17 18:48; Admin Dose 4 MG; Start 06/01/17 at 18:30 Oxycodone/ Acetaminophen (Percocet (5/ 325)) 1 tab Q6H PRN PO MODERATE PAIN LEVEL 4-6; Start 06/01/17 at 18:30 Docusate Sodium (Colace) 100 mg Q12H PRN PO CONSTIPATION; Start 06/01/17 at 18: 30 Famotidine 20 mg 20 mg Q12 PO Last administered on 06/04/17 08:33; Admin Dose 20 MG; Start 06/01/17 at 21:00 Ceftriaxone Sodium (Rocephin) 50 ml @ 100 mls/hr Q24H IVPB Last administered on 06/02/17 15:29; Admin Dose 100 MLS/HR; Start 06/02/17 at 16:00 Mupirocin 1 applic 1 applic DAILY TOP Last administered on 06/04/17 08:38; Admin Dose 1 APPLIC; Start 06/01/17 at 20:00 Potassium Chloride/Dextrose/ Sod Cl (D5-1/2ns + KCl 20 Meq) 1,000 ml @ 50 mls/ hr Q20H IV Last administered on 06/04/17 13:48; Admin Dose 50 MLS/HR; Start at 23:00 Diphenhydramine HCl (Benadryl) 25 mg Q6H PRN IV ITCHING Last administered on 10:20; Admin Dose 25 MG; Start 06/01/17 at 23:00 Lorazepam (Ativan) 0.5 mg Q6H PRN IV anxiety Last administered on 06/04/17 13: 48; Admin Dose 0.5 MG; Start 06/02/17 at 11:00 Metoclopramide HCl (Reglan) 10 mg Q6H PRN IV nausea Last administered on 08:39; Admin Dose 10 MG; Start 06/02/17 at 18:30 Morphine Sulfate (morphine) 3 mg Q2H PRN IV SEVERE PAIN LEVEL 7-10 Last administered on 06/04/17 10:26; Admin Dose 3 MG; Start 06/04/17 at 08:30 DERICK FARAH MD Jun 04, 2017 14:39
[2017-06-04] MEDS: HYDROmorphONE 1 MG/ML SYG IV PRN ×4 (15:12→22:59)
[2017-06-04] MEDS: morphine (ER) 15 MG TAB PO SCH ×2 (16:33→23:27)
[2017-06-04] MEDS: CEFTRIAXONE 1 GM/50 ML (PMX) 50 ML IVPB SCH (16:33)
[2017-06-04] MEDS: ONDANSETRON 4 MG INJ IV PRN ×2 (17:51→23:28)
--- NOTE | 2017-06-04 17:52 | PN ---
Date/Time of Note Date/Time of Note DATE: 06/04/17 TIME: 17:50 Assessment/Plan VTE Prophylaxis VTE Prophylaxis Intervention: SCD's Lines/Catheters IV Catheter Type (from Nrsg): Peripheral IV Urinary Cath still in place: Yes Reason Cath still needed: urinary retention Assessment/Plan Chief Complaint/Hosp Course Pain is better control with Dilaudid, patient is upset, crying. Assessment/Plan -Intractable suprapubic pain, Continue Zofran as needed for nausea, [place] and morphine as needed for pain. Dr. Doss is asked to see patient from pain management -Status post hysterectomy and salpingectomy, Dr. Huerta is following in surgical consultation. -Status post cystotomy repair,s/p suprapubic catheter insertion -Urinary tract infection per UA, continue Rocephin follow-up on urine culture. -Bipolar disorder, continue Abilify and Wellbutrin -Tobacco dependence. Tobacco cessation is strongly advised. Further recommendations based on clinical course. Plan of care discussed with Dr. Castellanos. Problems: Exam/Review of Systems Vital Signs Vitals Vital Signs Date Time Temp Pulse Resp B/P Pulse Ox O2 Delivery O2 Flow Rate FiO2 06/04/17 14:12 98.1 69 18 116/68 93 06/03/17 17:07 Nasal Cannula 2.0 Intake and Output 06/03/17 06/03/17 06/04/17 15:00 23:00 07:00 Intake Total 850 ml 670 ml Output Total 403 ml 800 ml Balance 447 ml -130 ml Exam Constitutional: alert, oriented Respiratory: clear to auscultation Cardiovascular: nl pulses Gastrointestinal: non-tender, other (Suprapubic tenderness, Borja catheter), soft Genitourinary - Female: other (Borja) Extremities: normal pulses Results Result Diagram: 06/04/17 1120 06/04/17 1120 Results 24 hrs Laboratory Tests Test 06/04/17 11:20 White Blood Count 11.7 #H Red Blood Count 3.66 L Hemoglobin 12.5 Hematocrit 36.6 L Mean Corpuscular Volume 100.0 Mean Corpuscular Hemoglobin 34.2 H Mean Corpuscular Hemoglobin Concent 34.2 Red Cell Distribution Width 12.1 Platelet Count 459 H Mean Platelet Volume 9.0 Neutrophils % 78.2 H Lymphocytes % 14.4 L Monocytes % 6.7 Eosinophils % 0.1 Basophils % 0.3 Nucleated Red Blood Cells % 0.0 Neutrophils # 9.2 H Lymphocytes # 1.7 Monocytes # 0.8 Eosinophils # 0.0 Basophils # 0.0 Nucleated Red Blood Cells # 0.0 Sodium Level 141 Potassium Level 4.2 Chloride Level 105 Carbon Dioxide Level 24 Anion Gap 16 Blood Urea Nitrogen 9 Creatinine 0.72 Glucose Level 84 Calcium Level 8.8 Medications Medications Current Medications Aripiprazole (Abilify) 10 mg DAILY PO Last administered on 06/04/17 08:33; Admin Dose 10 MG; Start 06/02/17 at 09:00 Bupropion HCl (Wellbutrin Xl) 150 mg DAILY PO Last administered on 06/04/17 08 :33; Admin Dose 150 MG; Start 06/02/17 at 09:00 Ondansetron HCl (Zofran Inj) 4 mg Q4H PRN IV NAUSEA AND/OR VOMITING Last administered on 06/03/17 18:48; Admin Dose 4 MG; Start 06/01/17 at 18:30 Docusate Sodium (Colace) 100 mg Q12H PRN PO CONSTIPATION; Start 06/01/17 at 18: 30 Famotidine 20 mg 20 mg Q12 PO Last administered on 06/04/17 08:33; Admin Dose 20 MG; Start 06/01/17 at 21:00 Ceftriaxone Sodium (Rocephin) 50 ml @ 100 mls/hr Q24H IVPB Last administered on 06/04/17 16:33; Admin Dose 100 MLS/HR; Start 06/02/17 at 16:00 Mupirocin 1 applic 1 applic DAILY TOP Last administered on 06/04/17 08:38; Admin Dose 1 APPLIC; Start 06/01/17 at 20:00 Potassium Chloride/Dextrose/ Sod Cl (D5-1/2ns + KCl 20 Meq) 1,000 ml @ 50 mls/ hr Q20H IV Last administered on 06/04/17 13:48; Admin Dose 50 MLS/HR; Start at 23:00 Diphenhydramine HCl (Benadryl) 25 mg Q6H PRN IV ITCHING Last administered on 16:37; Admin Dose 25 MG; Start 06/01/17 at 23:00 Lorazepam (Ativan) 0.5 mg Q6H PRN IV anxiety Last administered on 06/04/17 13: 48; Admin Dose 0.5 MG; Start 06/02/17 at 11:00 Metoclopramide HCl (Reglan) 10 mg Q6H PRN IV nausea Last administered on 08:39; Admin Dose 10 MG; Start 06/02/17 at 18:30 Morphine Sulfate (Ms Contin (Er)) 45 mg Q8 PO Last administered on 06/04/17 16 :33; Admin Dose 45 MG; Start 06/04/17 at 16:00 Hydromorphone HCl (Dilaudid) 0.5 mg Q2H PRN IV PAIN Last administered on 15:12; Admin Dose 0.5 MG; Start 06/04/17 at 15:00 Fluconazole (Diflucan) 200 mg DAILY GTB ; Start 06/05/17 at 09:00; Stop at 09:01 Miscellaneous Information (*Order Clarification Bulletin) MEDICATION REQUIRES CLARIFICATI... Q8H XX Last administered on 06/04/17 16:36; Admin Dose 1 EA; Start 06/04/17 at 16:00; Stop 06/05/17 at 18:00 KAMILA VENTURA Jun 04, 2017 17:51
[2017-06-04 20:00] VITALS: BP 112/69; RESP 17
[2017-06-05 02:00] VITALS: BP 109/64; RESP 19
[2017-06-05] MEDS: HYDROmorphONE 1 MG/ML SYG IV PRN ×9 (02:07→23:26)
[2017-06-05] MEDS: ONDANSETRON 4 MG INJ IV PRN ×2 (05:06→10:25)
[2017-06-05] MEDS: morphine (ER) 15 MG TAB PO SCH (05:41)
[2017-06-05 06:21] LABS: BASOPHILS % 0.3 % (0.0-2.0); EOSINOPHILS # 0.1 10^3/ul (0.0-0.5); EOSINOPHILS % 0.5 % (0.0-7.0); HEMATOCRIT 35.6 % (37.0-47.0); HEMOGLOBIN 11.7 g/dl (12.0-16.0); LYMPHOCYTES # 2.2 10^3/ul (0.8-2.9); LYMPHOCYTES % 21.3 % (15.0-51.0); MEAN CORPUSCULAR HEMOGLOBIN 33.1 pg (29.0-33.0); MEAN CORPUSCULAR HGB CONC 32.9 g/dl (32.0-37.0); MEAN CORPUSCULAR VOLUME 100.8 fl (82.0-101.0); MONOCYTE # 0.8 10^3/ul (0.3-0.9); MONOCYTES % 7.9 % (0.0-11.0); NEUTROPHIL # 7.1 10^3/ul (1.6-7.5); NEUTROPHILS % 69.7 % (39.0-77.0); PLATELET COUNT 442 10^3/UL (140-415); RED BLOOD COUNT 3.53 10^6/ul (4.20-5.40); RED CELL DISTRIBUTION WIDTH 12.6 % (11.5-14.5); WHITE BLOOD COUNT 10.2 10^3/ul (4.8-10.8)
[2017-06-05] MEDS: LORAZEPAM 2 MG INJ IV PRN ×3 (06:51→20:46)
[2017-06-05 07:00] LABS: CALCIUM 8.7 mg/dl (8.4-10.2); CREATININE 0.71 mg/dl (0.44-1.00); POTASSIUM 3.8 mmol/L (3.5-5.1)
[2017-06-05 07:57] VITALS: BP 122/73; RESP 16
[2017-06-05] MEDS: FAMOTIDINE 20 MG TAB PO SCH ×2 (10:25→20:46)
[2017-06-05] MEDS: FLUCONAZOLE 200 MG TAB GTB SCH (10:25)
[2017-06-05] MEDS: BUPROPION (XL) 150 MG TAB PO SCH (10:25)
[2017-06-05] MEDS: MUPIROCIN 2% 22 GM OINT TOP SCH (10:25)
[2017-06-05] MEDS: ARIPIPRAZOLE 10 MG TAB PO SCH (10:25)
[2017-06-05] MEDS: METHADONE (1 MG/ML 5 ML PO UD SYG) PO SCH ×3 (11:16→21:34)
[2017-06-05] MEDS: METHOCARBAMOL 500 MG TAB PO SCH ×3 (11:17→21:34)
[2017-06-05] MEDS: D5W-0.45 NACL + KCL 20 MEQ 1,000 ML IV SCH (12:21)
[2017-06-05 14:00] VITALS: BP 106/59; RESP 18
[2017-06-05] MEDS: CEFTRIAXONE 1 GM/50 ML (PMX) 50 ML IVPB SCH (15:55)
[2017-06-05] MEDS: METOCLOPRAMIDE 10 MG INJ IV PRN (16:00)
[2017-06-05 20:30] VITALS: BP 125/79; RESP 19
--- NOTE | 2017-06-05 21:02 | PN ---
Date/Time of Note Date/Time of Note DATE: 06/05/17 TIME: 20:58 Assessment/Plan VTE Prophylaxis VTE Prophylaxis Intervention: SCD's Lines/Catheters IV Catheter Type (from Nrsg): Peripheral IV Urinary Cath still in place: Yes Reason Cath still needed: urinary retention Assessment/Plan Assessment/Plan -Intractable suprapubic pain, SP Suprapubic cath placement by Dr. Huerta today - per surgery -Status post hysterectomy and salpingectomy, Dr. Huerta is following in surgical consultation. -Status post cystotomy repair, plan for suprapubic catheter insertion tomorrow by surgery -Urinary tract infection per UA, continue Rocephin follow-up on urine culture. -Bipolar disorder, continue Abilify and Wellbutrin -Tobacco dependence. Tobacco cessation is strongly advised. Further recommendations based on clinical course. Plan of care discussed with Dr. Castellanos. Subjective 24 Hr Interval Summary Free Text/Dictation NAD, afebrile, SPC draining well, Pain is better control with Dilaudid, feels little better than yesterday. dw staff Constitutional: requiring IVF Cardiovascular: no complaints Gastrointestinal: other, pain Genitourinary: other (bladder pain ) Skin: no complaints Exam/Review of Systems Vital Signs Vitals Vital Signs Date Time Temp Pulse Resp B/P Pulse Ox O2 Delivery O2 Flow Rate FiO2 06/05/17 20:30 98.1 81 19 125/79 98 06/03/17 17:07 Nasal Cannula 2.0 Intake and Output 06/04/17 06/04/17 06/05/17 15:00 23:00 07:00 Intake Total 400 ml 620 ml 800 ml Output Total 500 ml 650 ml Balance 400 ml 120 ml 150 ml Exam Constitutional: alert, oriented, well developed Respiratory: clear to auscultation Cardiovascular: nl pulses, regular rate and rhythm Gastrointestinal: soft, tender Genitourinary - Female: other (surgical site tenderness) Musculoskeletal: nl extremities to inspection Extremities: normal pulses Neurological: nl mental status, nl speech Results Result Diagram: 06/05/17 0535 06/05/17 0535 Results 24 hrs Laboratory Tests Test 06/05/17 05:35 White Blood Count 10.2 Red Blood Count 3.53 L Hemoglobin 11.7 L Hematocrit 35.6 L Mean Corpuscular Volume 100.8 Mean Corpuscular Hemoglobin 33.1 H Mean Corpuscular Hemoglobin Concent 32.9 Red Cell Distribution Width 12.6 Platelet Count 442 H Mean Platelet Volume 9.0 Neutrophils % 69.7 Lymphocytes % 21.3 Monocytes % 7.9 Eosinophils % 0.5 Basophils % 0.3 Nucleated Red Blood Cells % 0.0 Neutrophils # 7.1 Lymphocytes # 2.2 Monocytes # 0.8 Eosinophils # 0.1 Basophils # 0.0 Nucleated Red Blood Cells # 0.0 Sodium Level 141 Potassium Level 3.8 Chloride Level 102 Carbon Dioxide Level 26 Anion Gap 17 H Blood Urea Nitrogen 7 Creatinine 0.71 Glucose Level 83 Calcium Level 8.7 Medications Medications Current Medications Aripiprazole (Abilify) 10 mg DAILY PO Last administered on 06/05/17 10:25; Admin Dose 10 MG; Start 06/02/17 at 09:00 Bupropion HCl (Wellbutrin Xl) 150 mg DAILY PO Last administered on 06/05/17 10 :25; Admin Dose 150 MG; Start 06/02/17 at 09:00 Ondansetron HCl (Zofran Inj) 4 mg Q4H PRN IV NAUSEA AND/OR VOMITING Last administered on 06/05/17 10:25; Admin Dose 4 MG; Start 06/01/17 at 18:30 Docusate Sodium (Colace) 100 mg Q12H PRN PO CONSTIPATION; Start 06/01/17 at 18: 30 Famotidine 20 mg 20 mg Q12 PO Last administered on 06/05/17 20:46; Admin Dose 20 MG; Start 06/01/17 at 21:00 Ceftriaxone Sodium (Rocephin) 50 ml @ 100 mls/hr Q24H IVPB Last administered on 06/05/17 15:55; Admin Dose 100 MLS/HR; Start 06/02/17 at 16:00 Mupirocin 1 applic 1 applic DAILY TOP Last administered on 06/05/17 10:25; Admin Dose 1 APPLIC; Start 06/01/17 at 20:00 Potassium Chloride/Dextrose/ Sod Cl (D5-1/2ns + KCl 20 Meq) 1,000 ml @ 50 mls/ hr Q20H IV Last administered on 06/05/17 12:21; Admin Dose 50 MLS/HR; Start at 23:00 Lorazepam (Ativan) 0.5 mg Q6H PRN IV anxiety Last administered on 06/05/17 20: 46; Admin Dose 0.5 MG; Start 06/02/17 at 11:00 Metoclopramide HCl (Reglan) 10 mg Q6H PRN IV nausea Last administered on 16:00; Admin Dose 10 MG; Start 06/02/17 at 18:30 Hydromorphone HCl (Dilaudid) 0.5 mg Q2H PRN IV PAIN Last administered on 19:38; Admin Dose 0.5 MG; Start 06/04/17 at 15:00 Fluconazole (Diflucan) 200 mg DAILY GTB Last administered on 06/05/17 10:25; Admin Dose 200 MG; Start 06/05/17 at 09:00; Stop 06/06/17 at 09:01 Methadone HCl (Methadone Liq) 3 mg Q8 PO Last administered on 06/05/17 11:16; Admin Dose 3 MG; Start 06/05/17 at 09:00 Methocarbamol (Robaxin) 500 mg Q8 PO Last administered on 06/05/17 11:17; Admin Dose 500 MG; Start 06/05/17 at 09:30 ALDA MURPHY Jun 05, 2017 21:01
[2017-06-06] MEDS: ONDANSETRON 4 MG INJ IV PRN ×5 (01:50→22:46)
[2017-06-06] MEDS: HYDROmorphONE 1 MG/ML SYG IV PRN ×9 (01:50→22:47)
[2017-06-06 02:00] VITALS: BP 100/57; RESP 18
[2017-06-06] MEDS: METHOCARBAMOL 500 MG TAB PO SCH ×3 (05:47→22:14)
[2017-06-06] MEDS: METHADONE (1 MG/ML 5 ML PO UD SYG) PO SCH ×3 (05:48→22:14)
[2017-06-06 08:55] VITALS: BP 133/62; RESP 18
[2017-06-06] MEDS: FLUCONAZOLE 200 MG TAB GTB SCH (09:04)
[2017-06-06] MEDS: FAMOTIDINE 20 MG TAB PO SCH ×2 (09:04→20:22)
[2017-06-06] MEDS: ARIPIPRAZOLE 10 MG TAB PO SCH (09:04)
[2017-06-06] MEDS: BUPROPION (XL) 150 MG TAB PO SCH (09:05)
[2017-06-06] MEDS: MUPIROCIN 2% 22 GM OINT TOP SCH (09:06)
[2017-06-06 10:22] LABS: BASOPHILS % 0.5 % (0.0-2.0); EOSINOPHILS % 0.5 % (0.0-7.0); HEMATOCRIT 38.4 % (37.0-47.0); HEMOGLOBIN 12.8 g/dl (12.0-16.0); LYMPHOCYTES # 1.1 10^3/ul (0.8-2.9); LYMPHOCYTES % 12.4 % (15.0-51.0); MEAN CORPUSCULAR HGB CONC 33.3 g/dl (32.0-37.0); MONOCYTE # 0.8 10^3/ul (0.3-0.9); MONOCYTES % 9.7 % (0.0-11.0); NEUTROPHIL # 6.6 10^3/ul (1.6-7.5); NEUTROPHILS % 76.6 % (39.0-77.0); PLATELET COUNT 438 10^3/UL (140-415); RED BLOOD COUNT 3.88 10^6/ul (4.20-5.40); RED CELL DISTRIBUTION WIDTH 12.4 % (11.5-14.5); WHITE BLOOD COUNT 8.6 10^3/ul (4.8-10.8)
[2017-06-06 10:43] LABS: CALCIUM 9.2 mg/dl (8.4-10.2); CREATININE 0.74 mg/dl (0.44-1.00); POTASSIUM 3.8 mmol/L (3.5-5.1)
[2017-06-06] MEDS: LORAZEPAM 2 MG INJ IV PRN (10:45)
[2017-06-06] MEDS: D5W-0.45 NACL + KCL 20 MEQ 1,000 ML IV SCH (10:48)
--- NOTE | 2017-06-06 13:53 | PN ---
Date/Time of Note Date/Time of Note DATE: 06/06/17 TIME: 13:43 Assessment/Plan VTE Prophylaxis VTE Prophylaxis Intervention: SCD's Lines/Catheters IV Catheter Type (from Nrsg): Peripheral IV Urinary Cath still in place: Yes Reason Cath still needed: urinary retention Assessment/Plan Assessment/Plan -Intractable suprapubic pain, SP Suprapubic cath placement by Dr. Huerta. - per surgery -[place] and morphine as needed for pain. Dr. Doss - pain management consult pending -Status post hysterectomy and salpingectomy, Dr. Huerta is following in surgical consultation. -Status post cystotomy repair, plan for suprapubic catheter insertion tomorrow by surgery -Urinary tract infection per UA, continue Rocephin follow-up on urine culture. -Bipolar disorder, continue Abilify and Wellbutrin -Tobacco dependence. Tobacco cessation is strongly advised. Further recommendations based on clinical course. Plan of care discussed with Dr. Castellanos. Subjective 24 Hr Interval Summary Free Text/Dictation afebrile, c/o bladder pain, SPC noted, surgery follows, dw staff- no new events reported overnight. dw satff Respiratory: no complaints Cardiovascular: no complaints Genitourinary: other (suprapubic pain) Musculoskeletal: no complaints Skin: no complaints Neurologic: no complaints Exam/Review of Systems Vital Signs Vitals Vital Signs Date Time Temp Pulse Resp B/P Pulse Ox O2 Delivery O2 Flow Rate FiO2 06/06/17 08:55 98.0 80 18 133/62 98 06/03/17 17:07 Nasal Cannula 2.0 Intake and Output 06/05/17 06/05/17 06/06/17 15:00 23:00 07:00 Intake Total 250 ml 880 ml 900 ml Output Total 700 ml 1600 ml Balance 250 ml 180 ml -700 ml Exam Constitutional: alert, oriented, well developed Respiratory: clear to auscultation, normal air movement Cardiovascular: nl pulses, regular rate and rhythm Gastrointestinal: non-tender, soft Genitourinary - Female: other (suprapubic surgery) Musculoskeletal: nl extremities to inspection Extremities: normal pulses Neurological: nl mental status, nl speech Results Result Diagram: 06/06/17 0935 06/06/17 0935 Results 24 hrs Laboratory Tests Test 06/06/17 09:35 White Blood Count 8.6 Red Blood Count 3.88 L Hemoglobin 12.8 Hematocrit 38.4 Mean Corpuscular Volume 99.0 Mean Corpuscular Hemoglobin 33.0 Mean Corpuscular Hemoglobin Concent 33.3 Red Cell Distribution Width 12.4 Platelet Count 438 H Mean Platelet Volume 9.0 Neutrophils % 76.6 Lymphocytes % 12.4 L Monocytes % 9.7 Eosinophils % 0.5 Basophils % 0.5 Nucleated Red Blood Cells % 0.0 Neutrophils # 6.6 Lymphocytes # 1.1 Monocytes # 0.8 Eosinophils # 0.0 Basophils # 0.0 Nucleated Red Blood Cells # 0.0 Sodium Level 136 Potassium Level 3.8 Chloride Level 103 Carbon Dioxide Level 25 Anion Gap 12 Blood Urea Nitrogen 6 L Creatinine 0.74 Glucose Level 98 Calcium Level 9.2 Medications Medications Current Medications Aripiprazole (Abilify) 10 mg DAILY PO Last administered on 06/06/17 09:04; Admin Dose 10 MG; Start 06/02/17 at 09:00 Bupropion HCl (Wellbutrin Xl) 150 mg DAILY PO Last administered on 06/06/17 09 :05; Admin Dose 150 MG; Start 06/02/17 at 09:00 Ondansetron HCl (Zofran Inj) 4 mg Q4H PRN IV NAUSEA AND/OR VOMITING Last administered on 06/06/17 08:15; Admin Dose 4 MG; Start 06/01/17 at 18:30 Docusate Sodium (Colace) 100 mg Q12H PRN PO CONSTIPATION; Start 06/01/17 at 18: 30 Famotidine 20 mg 20 mg Q12 PO Last administered on 06/06/17 09:04; Admin Dose 20 MG; Start 06/01/17 at 21:00 Ceftriaxone Sodium (Rocephin) 50 ml @ 100 mls/hr Q24H IVPB Last administered on 06/05/17 15:55; Admin Dose 100 MLS/HR; Start 06/02/17 at 16:00 Mupirocin 1 applic 1 applic DAILY TOP Last administered on 06/06/17 09:06; Admin Dose 1 APPLIC; Start 06/01/17 at 20:00 Potassium Chloride/Dextrose/ Sod Cl (D5-1/2ns + KCl 20 Meq) 1,000 ml @ 50 mls/ hr Q20H IV Last administered on 06/06/17 10:48; Admin Dose 50 MLS/HR; Start at 23:00 Lorazepam (Ativan) 0.5 mg Q6H PRN IV anxiety Last administered on 06/06/17 10: 45; Admin Dose 0.5 MG; Start 06/02/17 at 11:00 Metoclopramide HCl (Reglan) 10 mg Q6H PRN IV nausea Last administered on 16:00; Admin Dose 10 MG; Start 06/02/17 at 18:30 Hydromorphone HCl (Dilaudid) 0.5 mg Q2H PRN IV PAIN Last administered on 12:39; Admin Dose 0.5 MG; Start 06/04/17 at 15:00 Methadone HCl (Methadone Liq) 3 mg Q8 PO Last administered on 06/06/17 05:48; Admin Dose 3 MG; Start 06/05/17 at 09:00 Methocarbamol (Robaxin) 500 mg Q8 PO Last administered on 06/06/17 05:47; Admin Dose 500 MG; Start 06/05/17 at 09:30 ALDA MURPHY Jun 06, 2017 13:52
[2017-06-06 14:52] VITALS: BP 101/62; RESP 16
[2017-06-06] MEDS: CEFTRIAXONE 1 GM/50 ML (PMX) 50 ML IVPB SCH (15:42)
--- NOTE | 2017-06-06 16:20 | PN ---
Date/Time of Note Date/Time of Note DATE: 06/06/17 TIME: 16:13 Assessment/Plan VTE Prophylaxis VTE Prophylaxis Intervention: SCD's Lines/Catheters IV Catheter Type (from Nrsg): Peripheral IV Urinary Cath still in place: Yes Reason Cath still needed: other (indicate) Assessment/Plan Chief Complaint/Hosp Course A- depresion, bipolar, pain P- reiterated need for s/p cath and what is is and plan for ongoing bladder rest and plan to do . Problems: Assessment/Plan A- improved but need ongoing pain meds/mgt P - from a sugical perspective I am comfortable with discharge with Borja and s/ p catheter in place to avoid fistula. I will d/c s/p cath in 7-10 days in office and Borja in 3-4 weeks possibly. Must be discharged with BOTH in. Can be sent home today or a.m. if possible with pain medications per pain mgt and IM. Subjective 24 Hr Interval Summary Free Text/Dictation Slightly less pain. Indicated only pain is lower abd and and s/p site; NOT Borja. Carlos diet. Exam/Review of Systems Vital Signs Vitals Vital Signs Date Time Temp Pulse Resp B/P Pulse Ox O2 Delivery O2 Flow Rate FiO2 06/06/17 14:52 98.4 67 16 101/62 96 06/03/17 17:07 Nasal Cannula 2.0 Intake and Output 06/05/17 06/05/17 06/06/17 15:00 23:00 07:00 Intake Total 250 ml 880 ml 900 ml Output Total 700 ml 1600 ml Balance 250 ml 180 ml -700 ml Exam Resp- clear CVS- NSR Abd- s/p site clean and minimally tender. Ext nt no edema Results Result Diagram: 06/06/17 0935 06/06/17 0935 Results 24 hrs Laboratory Tests Test 06/06/17 09:35 White Blood Count 8.6 Red Blood Count 3.88 L Hemoglobin 12.8 Hematocrit 38.4 Mean Corpuscular Volume 99.0 Mean Corpuscular Hemoglobin 33.0 Mean Corpuscular Hemoglobin Concent 33.3 Red Cell Distribution Width 12.4 Platelet Count 438 H Mean Platelet Volume 9.0 Neutrophils % 76.6 Lymphocytes % 12.4 L Monocytes % 9.7 Eosinophils % 0.5 Basophils % 0.5 Nucleated Red Blood Cells % 0.0 Neutrophils # 6.6 Lymphocytes # 1.1 Monocytes # 0.8 Eosinophils # 0.0 Basophils # 0.0 Nucleated Red Blood Cells # 0.0 Sodium Level 136 Potassium Level 3.8 Chloride Level 103 Carbon Dioxide Level 25 Anion Gap 12 Blood Urea Nitrogen 6 L Creatinine 0.74 Glucose Level 98 Calcium Level 9.2 Medications Medications Current Medications Aripiprazole (Abilify) 10 mg DAILY PO Last administered on 06/06/17 09:04; Admin Dose 10 MG; Start 06/02/17 at 09:00 Bupropion HCl (Wellbutrin Xl) 150 mg DAILY PO Last administered on 06/06/17 09 :05; Admin Dose 150 MG; Start 06/02/17 at 09:00 Ondansetron HCl (Zofran Inj) 4 mg Q4H PRN IV NAUSEA AND/OR VOMITING Last administered on 06/06/17 13:54; Admin Dose 4 MG; Start 06/01/17 at 18:30 Docusate Sodium (Colace) 100 mg Q12H PRN PO CONSTIPATION; Start 06/01/17 at 18: 30 Famotidine 20 mg 20 mg Q12 PO Last administered on 06/06/17 09:04; Admin Dose 20 MG; Start 06/01/17 at 21:00 Ceftriaxone Sodium (Rocephin) 50 ml @ 100 mls/hr Q24H IVPB Last administered on 06/06/17 15:42; Admin Dose 100 MLS/HR; Start 06/02/17 at 16:00 Mupirocin 1 applic 1 applic DAILY TOP Last administered on 06/06/17 09:06; Admin Dose 1 APPLIC; Start 06/01/17 at 20:00 Potassium Chloride/Dextrose/ Sod Cl (D5-1/2ns + KCl 20 Meq) 1,000 ml @ 50 mls/ hr Q20H IV Last administered on 06/06/17 10:48; Admin Dose 50 MLS/HR; Start at 23:00 Lorazepam (Ativan) 0.5 mg Q6H PRN IV anxiety Last administered on 06/06/17 10: 45; Admin Dose 0.5 MG; Start 06/02/17 at 11:00 Metoclopramide HCl (Reglan) 10 mg Q6H PRN IV nausea Last administered on 16:00; Admin Dose 10 MG; Start 06/02/17 at 18:30 Hydromorphone HCl (Dilaudid) 0.5 mg Q2H PRN IV PAIN Last administered on 15:42; Admin Dose 0.5 MG; Start 06/04/17 at 15:00 Methadone HCl (Methadone Liq) 3 mg Q8 PO Last administered on 06/06/17 13:48; Admin Dose 3 MG; Start 06/05/17 at 09:00 Methocarbamol (Robaxin) 500 mg Q8 PO Last administered on 06/06/17 13:47; Admin Dose 500 MG; Start 06/05/17 at 09:30 DERICK FARAH MD Jun 06, 2017 16:20
[2017-06-06 20:23] VITALS: BP 104/69; RESP 18
--- NOTE | 2017-06-06 22:10 | EN ---
Date/Time of Note Date/Time of Note DATE: 06/06/17 TIME: 22:08 ER Progress Note I saw this patient along with KEEPER HELPER Krystal Cope. I agreed with workup, treatment, and documentation. I spoke with Dr. Castellanos who agrees to admit to medical surgical floor for surgical evaluation. CADEN SALAMANCA DO Jun 06, 2017 22:10
[2017-06-07] MEDS: HYDROmorphONE 1 MG/ML SYG IV PRN ×9 (01:29→23:31)
[2017-06-07 02:58] VITALS: BP 101/56; RESP 18
[2017-06-07] MEDS: METHADONE (1 MG/ML 5 ML PO UD SYG) PO SCH ×3 (05:41→21:37)
[2017-06-07] MEDS: METHOCARBAMOL 500 MG TAB PO SCH ×3 (05:41→21:38)
[2017-06-07] MEDS: D5W-0.45 NACL + KCL 20 MEQ 1,000 ML IV SCH ×2 (06:30→19:00)
[2017-06-07] MEDS: LORAZEPAM 2 MG INJ IV PRN ×2 (07:47→17:02)
[2017-06-07 08:17] VITALS: BP 104/55; RESP 16
[2017-06-07] MEDS: FAMOTIDINE 20 MG TAB PO SCH ×2 (09:51→21:02)
[2017-06-07] MEDS: ARIPIPRAZOLE 10 MG TAB PO SCH (09:51)
[2017-06-07] MEDS: BUPROPION (XL) 150 MG TAB PO SCH (09:51)
[2017-06-07] MEDS: MUPIROCIN 2% 22 GM OINT TOP SCH (09:58)
[2017-06-07] MEDS: ONDANSETRON 4 MG INJ IV PRN ×2 (14:02→21:25)
[2017-06-07 14:21] VITALS: BP 113/70; RESP 18
[2017-06-07] MEDS: CEFTRIAXONE 1 GM/50 ML (PMX) 50 ML IVPB SCH (15:14)
--- NOTE | 2017-06-07 17:39 | PN ---
Date/Time of Note Date/Time of Note DATE: 06/07/17 TIME: 17:34 Assessment/Plan VTE Prophylaxis VTE Prophylaxis Intervention: SCD's Lines/Catheters IV Catheter Type (from Nrsg): Peripheral IV Urinary Cath still in place: Yes Reason Cath still needed: urinary retention Assessment/Plan Chief Complaint/Hosp Course Patient stated that her pain is much better controlled, patient is still remains anxious, worried about going home tonight, will discharge tomorrow morning. Prescription for Dilaudid is on the chart Assessment/Plan -Intractable suprapubic pain, improved. Discussed with Dr. Doss, pain management. Anticipate discharge tomorrow a.m. on p.o. Dilaudid -Status post hysterectomy and salpingectomy, Dr. Huerta is following in surgical consultation. -Status post cystotomy repair,s/p suprapubic catheter insertion -Urinary tract infection, status post treatment with Rocephin -Bipolar disorder, continue Abilify and Wellbutrin -Tobacco dependence. Tobacco cessation is strongly advised. Further recommendations based on clinical course. Plan of care discussed with Dr. Castellanos. Problems: Exam/Review of Systems Vital Signs Vitals Vital Signs Date Time Temp Pulse Resp B/P Pulse Ox O2 Delivery O2 Flow Rate FiO2 06/07/17 14:21 98.4 65 18 113/70 96 06/03/17 17:07 Nasal Cannula 2.0 Intake and Output 06/06/17 06/06/17 06/07/17 15:00 23:00 07:00 Intake Total 725 ml 875 ml Output Total 1300 ml 350 ml Balance -575 ml 525 ml Exam Constitutional: alert, oriented Respiratory: clear to auscultation Cardiovascular: nl pulses Gastrointestinal: non-tender, other (Suprapubic tenderness, Borja catheter), soft Extremities: normal pulses Results Result Diagram: 06/06/1793406/06/17934 Medications Medications Current Medications Aripiprazole (Abilify) 10 mg DAILY PO Last administered on 06/07/17 09:51; Admin Dose 10 MG; Start 06/02/17 at 09:00 Bupropion HCl (Wellbutrin Xl) 150 mg DAILY PO Last administered on 06/07/17 09 :51; Admin Dose 150 MG; Start 06/02/17 at 09:00 Ondansetron HCl (Zofran Inj) 4 mg Q4H PRN IV NAUSEA AND/OR VOMITING Last administered on 06/07/17 14:02; Admin Dose 4 MG; Start 06/01/17 at 18:30 Docusate Sodium (Colace) 100 mg Q12H PRN PO CONSTIPATION; Start 06/01/17 at 18: 30 Famotidine 20 mg 20 mg Q12 PO Last administered on 06/07/17 09:51; Admin Dose 20 MG; Start 06/01/17 at 21:00 Ceftriaxone Sodium (Rocephin) 50 ml @ 100 mls/hr Q24H IVPB Last administered on 06/07/17 15:14; Admin Dose 100 MLS/HR; Start 06/02/17 at 16:00 Mupirocin 1 applic 1 applic DAILY TOP Last administered on 06/07/17 09:58; Admin Dose 1 APPLIC; Start 06/01/17 at 20:00 Potassium Chloride/Dextrose/ Sod Cl (D5-1/2ns + KCl 20 Meq) 1,000 ml @ 50 mls/ hr Q20H IV Last administered on 06/07/17 06:30; Admin Dose 50 MLS/HR; Start at 23:00 Lorazepam (Ativan) 0.5 mg Q6H PRN IV anxiety Last administered on 06/07/17 17: 02; Admin Dose 0.5 MG; Start 06/02/17 at 11:00 Metoclopramide HCl (Reglan) 10 mg Q6H PRN IV nausea Last administered on 16:00; Admin Dose 10 MG; Start 06/02/17 at 18:30 Hydromorphone HCl (Dilaudid) 0.5 mg Q2H PRN IV PAIN Last administered on 15:11; Admin Dose 0.5 MG; Start 06/04/17 at 15:00 Methadone HCl (Methadone Liq) 3 mg Q8 PO Last administered on 06/07/17 14:04; Admin Dose 3 MG; Start 06/05/17 at 09:00 Methocarbamol (Robaxin) 500 mg Q8 PO Last administered on 06/07/17 14:04; Admin Dose 500 MG; Start 06/05/17 at 09:30 KAMILA VENTURA Jun 07, 2017 17:39
[2017-06-07 21:01] VITALS: BP 109/60; RESP 20
[2017-06-08] MEDS: HYDROmorphONE 1 MG/ML SYG IV PRN ×5 (01:26→10:46)
[2017-06-08 03:19] VITALS: BP 96/54; RESP 18
[2017-06-08] MEDS: METHADONE (1 MG/ML 5 ML PO UD SYG) PO SCH (05:56)
[2017-06-08] MEDS: METHOCARBAMOL 500 MG TAB PO SCH (05:56)
[2017-06-08] MEDS: D5W-0.45 NACL + KCL 20 MEQ 1,000 ML IV SCH (05:58)
[2017-06-08 06:08] LABS: BASOPHIL # 0.1 10^3/ul (0.0-0.1); BASOPHILS % 0.8 % (0.0-2.0); EOSINOPHILS # 0.1 10^3/ul (0.0-0.5); EOSINOPHILS % 2.4 % (0.0-7.0); HEMATOCRIT 39.1 % (37.0-47.0); HEMOGLOBIN 12.9 g/dl (12.0-16.0); LYMPHOCYTES # 1.4 10^3/ul (0.8-2.9); MEAN CORPUSCULAR HEMOGLOBIN 32.9 pg (29.0-33.0); MEAN CORPUSCULAR VOLUME 99.7 fl (82.0-101.0); MEAN PLATELET VOLUME 9.1 fl (7.4-10.4); MONOCYTE # 0.6 10^3/ul (0.3-0.9); NEUTROPHILS % 62.6 % (39.0-77.0); PLATELET COUNT 362 10^3/UL (140-415); RED BLOOD COUNT 3.92 10^6/ul (4.20-5.40); RED CELL DISTRIBUTION WIDTH 12.3 % (11.5-14.5); WHITE BLOOD COUNT 5.9 10^3/ul (4.8-10.8)
[2017-06-08 06:20] LABS: CALCIUM 9.3 mg/dl (8.4-10.2); CREATININE 0.72 mg/dl (0.44-1.00); POTASSIUM 4.1 mmol/L (3.5-5.1)
[2017-06-08 08:00] VITALS: BP 103/58; RESP 20
[2017-06-08] MEDS: LORAZEPAM 2 MG INJ IV PRN (08:59)
[2017-06-08] MEDS: ARIPIPRAZOLE 10 MG TAB PO SCH (09:03)
[2017-06-08] MEDS: BUPROPION (XL) 150 MG TAB PO SCH (09:03)
[2017-06-08] MEDS: MUPIROCIN 2% 22 GM OINT TOP SCH (09:03)
[2017-06-08] MEDS: FAMOTIDINE 20 MG TAB PO SCH (09:03)
[2017-06-08] MEDS ORDERED: METH500T8 PO (10:39)
[2017-06-08] MEDS ORDERED: HYDR2TAB36 PO (10:39)
[2017-06-08] MEDS: ONDANSETRON 4 MG INJ IV PRN (10:50)
--- NOTE | 2017-06-08 17:43 | DS ---
Date/Time of Note Date/Time of Note DATE: 06/08/17 TIME: 17:39 Discharge Summary Admission/Discharge Info Admit Date/Time Jun 01, 2017 at 15:50 Discharge Date/Time Jun 08, 2017 at 12:30 Patient Condition: Stable Hx of Present Illness The patient is 42-year-old female who underwent laparoscopic hysterectomy and bilateral salpingectomy, and repair of cystotomy on May [address] Jihan Casarez. Patient recovered after surgery well and was discharged with Borja catheter in place. Patient developed developed significant abdominal pain, which was not relieved by Pyridium and p.o. medication. Patient stated her pain got significantly worse. Patient denies any fever and chills denies any nausea and vomiting, denies diarrhea. Patient will be admitted for further management and possible suprapubic catheter insertion. Hospital Course -Intractable suprapubic pain, improved. Dr. Doss was following in pain management. -Status post hysterectomy and salpingectomy, Dr. Huerta is following in surgical consultation. -Status post cystotomy repair, s/p suprapubic catheter insertion. After suprapubic catheter insertion patient continues to have drainage of urine and Borja catheter was reinserted to avoid fistula formation. -Urinary tract infection, status post treatment with Rocephin -Bipolar disorder, continue Abilify and Wellbutrin -Tobacco dependence. Tobacco cessation is strongly advised. Further recommendations based on clinical course. Plan of care discussed with Dr. Castellanos. Home Meds Active Scripts Hydromorphone Hcl* (Dilaudid*) 2 Mg Tablet, 2 MG PO Q6H Y for PAIN LEVEL 6-10, # 30 TAB Prov:KAMILA VENTURA 06/08/17 Methocarbamol* (Methocarbamol*) 500 Mg Tablet, 500 MG PO Q8, #30 TAB Prov:KAMILA VENTURA 06/08/17 Reported Medications Metoclopramide Hcl* (Metoclopramide Hcl*) 10 Mg Tablet, 10 MG PO Q6H Y for NAUSEA AND OR VOMITING, TAB 06/01/17 Ondansetron Hcl* (Zofran*) 8 Mg Tab, 8 MG PO Q6H Y for NAUSEA AND OR VOMITING, TAB 06/01/17 Aripiprazole* (Abilify*) 10 Mg Tablet, 10 MG PO DAILY, #30 TAB 06/01/17 Bupropion Hcl* (Wellbutrin XL*) 150 Mg Tab.sr.24h, 150 MG PO DAILY, TAB.SA 06/01/17 Discontinued Reported Medications Ciprofloxacin Hcl* (Ciprofloxacin Hcl*) 500 Mg Tablet, 500 MG PO BID for 10 Days , #5 TAB END DATE 06/04/17 06/01/17 Lorazepam* (Lorazepam*) 1 Mg Tablet, 1 MG PO HS Y for ANXIETY, #30 TAB 06/01/17 Bupropion Hcl* (Wellbutrin XL*) 300 Mg Tab.sr.24h, 300 MG PO DAILY, TAB.SA 06/01/17 Lorazepam* (Lorazepam*) 1 Mg Tablet, 1 MG PO HS, #30 TAB 05/20/17 Oxycodone HCl/Acetaminophen (Percocet 10-325 mg Tablet) 1 Each Tablet, 1 EACH PO Y for PAIN, TAB 09/16/16 Aripiprazole* (Abilify*) 5 Mg Tab, 5 MG PO DAILY, #30 TAB 09/16/16 Bupropion Hcl* (Wellbutrin XL*) 150 Mg Tab.sr.24h, 450 MG PO DAILY, TAB.SA 06/26/15 Ondansetron Hcl* (Zofran*) 8 Mg Tablet, 8 MG PO Q6H Y for NAUSEA AND OR VOMITING , TAB 04/01/15 Follow-up Plan Follow-up with Dr. Huerta in 7 days Primary Care Provider Adali Colin Pending Labs Laboratory Tests Test 06/08/17 05:33 White Blood Count 5.910^3/ul (4.8-10.8) Red Blood Count 3.9210^6/ul (4.20-5.40) Hemoglobin 12.9g/dl (12.0-16.0) Hematocrit 39.1% (37.0-47.0) Mean Corpuscular Volume 99.7fl (82.0-101.0) Mean Corpuscular Hemoglobin 32.9pg (29.0-33.0) Mean Corpuscular Hemoglobin Concent 33.0g/dl (32.0-37.0) Red Cell Distribution Width 12.3% (11.5-14.5) Platelet Count 81674^3/UL (140-415) Mean Platelet Volume 9.1fl (7.4-10.4) Neutrophils % 62.6% (39.0-77.0) Lymphocytes % 24.0% (15.0-51.0) Monocytes % 10.0% (0.0-11.0) Eosinophils % 2.4% (0.0-7.0) Basophils % 0.8% (0.0-2.0) Nucleated Red Blood Cells % 0.0/100WBC (0.0-0.0) Neutrophils # (Manual) 3.710^3/ul (1.7-7.5) Lymphocytes # 1.410^3/ul (0.8-2.9) Monocytes # 0.610^3/ul (0.3-0.9) Eosinophils # 0.110^3/ul (0.0-0.5) Basophils # 0.110^3/ul (0.0-0.1) Nucleated Red Blood Cells # 0.010^3/ul (0.0-0.0) Sodium Level 140mmol/L (135-144) Potassium Level 4.1mmol/L (3.5-5.1) Chloride Level 100mmol/L (97-110) Carbon Dioxide Level 27mmol/L (21-31) Anion Gap 17 (8-16) Blood Urea Nitrogen 9mg/dl (7-20) Creatinine 0.72mg/dl (0.44-1.00) Glucose Level 86mg/dl (70-220) Calcium Level 9.3mg/dl (8.4-10.2) KAMILA VENTURA Jun 08, 2017 17:43
== END 2017-06-08 12:30 | disposition home or self-care (01) | DRG 948 ==
LOC: FTE 12:29 → PP2 15:50
PROVIDERS: ADMIT Internal Medicine; ATTEND Internal Medicine
PROC: 0T9B70Z Drainage of Bladder with Drainage Device, Via Natural or Artificial Opening (ICD-10-PCS; principal; 2017-06-03 12:30)
DX: G89.18 Other acute postprocedural pain (principal); N39.0 Urinary tract infection, site not specified; F31.89 Other bipolar disorder; F17.200 Nicotine dependence, unspecified, uncomplicated; F41.9 Anxiety disorder, unspecified; Z90.710 Acquired absence of both cervix and uterus; Z90.79 Acquired absence of other genital organ(s); R10.9 Unspecified abdominal pain; Z90.49 Acquired absence of other specified parts of digestive tract; F17.210 Nicotine dependence, cigarettes, uncomplicated
CPT/HCPCS: 80048; 80053; 81001; 84703; 85025; 85610; 85730; 86850; 86900; 86901; 87081; 87086; 96374; 96375; 96376; J0131; J0400; J0696; J1100; J1170; J1200; J1885; J2060; J2250; J2270; J2405; J2765; J3010; J3480

== ENCOUNTER 2017-07-06 12:34 | Emergency (ER) | payer BC ==
[~2017-07-06] VITALS: Ht 160 cm; Wt 63.0 kg
[~2017-07-06 12:34] MED LIST changes: +ARIP10TA13 PO; -ARIP5TAB7 PO; +HYDR2TAB36 PO; -LORA1TAB PO; +METH500T8 PO; +METO10TA96 PO; -ONDA8TAB9 PO; -OXYC-209 PO; +ZOF8 PO
[2017-07-06 13:13] VITALS: Ht 160 cm; Wt 63.0 kg
[2017-07-06] MEDS ORDERED: METOCLOPRAMIDE 10 MG INJ IV STA (15:10)
[2017-07-06] MEDS ORDERED: SOD CHLORIDE 0.9% 1,000 ML IV STA (15:10)
[2017-07-06] MEDS ORDERED: HYDROmorphONE 1 MG/ML SYG IV STA (15:10)
--- NOTE | 2017-07-06 15:17 | ERA ---
ER Documentation Chief Complaint Date/Time DATE: 07/06/17 TIME: 15:15 Chief Complaint vomiting x 7 days ; ap x started this morning HPI 42-year-old female history of hysterectomy 6 weeks ago, cholecystectomy, pancreatitis presents to the emergency department complaining of severe constant generalized abdominal pain, mostly in the right upper quadrant and nonbilious nonbloody vomiting for the past 7 days. Patient states that she has been seen by her surgeon who has done a hysterectomy and they sent her here patient has tried Zofran with no relief. She denies fever, diarrhea. ROS All systems reviewed and are negative except as per history of present illness. Medications Home Meds Active Scripts Cephalexin* (Keflex*) 500 Mg Capsule, 500 MG PO QID for 7 Days, CAP Prov:TERI CRANE PA-C 07/06/17 Metoclopramide* (Reglan*) 10 Mg/10 Ml Soln, 10 MG PO Q6 for 3 Days, ML Prov:TERI CRNAE PA-C 07/06/17 Hydromorphone Hcl* (Dilaudid*) 2 Mg Tablet, 2 MG PO Q6H Y for PAIN LEVEL 6-10, # 30 TAB Prov:KAMILA VENTURA 06/08/17 Methocarbamol* (Methocarbamol*) 500 Mg Tablet, 500 MG PO Q8, #30 TAB Prov:KAMILA VENTURA 06/08/17 Reported Medications Metoclopramide Hcl* (Metoclopramide Hcl*) 10 Mg Tablet, 10 MG PO Q6H Y for NAUSEA AND OR VOMITING, TAB 06/01/17 Ondansetron Hcl* (Zofran*) 8 Mg Tab, 8 MG PO Q6H Y for NAUSEA AND OR VOMITING, TAB 06/01/17 Aripiprazole* (Abilify*) 10 Mg Tablet, 10 MG PO DAILY, #30 TAB 06/01/17 Bupropion Hcl* (Wellbutrin XL*) 150 Mg Tab.sr.24h, 150 MG PO DAILY, TAB.SA 06/01/17 Allergies Allergies: Coded Allergies: Sulfa (Sulfonamide Antibiotics) (Verified Allergy, Severe, RASH, 06/01/17) Penicillins (Verified Allergy, Unknown, 06/01/17) PMhx/Soc History of Surgery: Yes (multiple surgeries) Anesthesia Reaction: No Hx Neurological Disorder: No Hx Respiratory Disorders: No Hx Cardiac Disorders: No Hx Psychiatric Problems: Yes (anxiety,depression) Hx Miscellaneous Medical Probl: No Hx Alcohol Use: No Hx Substance Use: No Hx Tobacco Use: Yes Physical Exam Vitals Vital Signs Date Time Temp Pulse Resp B/P Pulse Ox O2 Delivery O2 Flow Rate FiO2 07/06/17 13:13 99.3 104 20 130/80 99 Physical Exam GENERAL: well-developed/well-nourished, patient is crying and appears to be in mild distress HENT: NC/AT, moist mucous membranes EYES: Conjunctiva normal NECK: Supple, no lymphadenopathy PULM: CTA bilaterally, no rales, rhonchi, or wheezing heard CV: Normal S1S2, RRR, good capillary refill GI: Soft, non-distended, tender to palpation right upper quadrant in all quadrants Normal bowel sounds, no masses or organomegaly felt on exam No gross peritonitis, no bruits Negative Rovsing, negative Keith, negative McBurney's point, Negative CVAT BACK: No masses EXT: No clubbing, cyanosis, or edema NEURO: Alert and Orientated SKIN: Intact, normal turgor PSYCH: Normal mood and mentation Result Diagram: 07/06/17 1553 07/06/17 1553 Results 24 hrs Laboratory Tests Test 07/06/17 15:53 White Blood Count 12.510^3/ul Red Blood Count 4.7410^6/ul Hemoglobin 15.9g/dl Hematocrit 44.5% Mean Corpuscular Volume 93.9fl Mean Corpuscular Hemoglobin 33.5pg Mean Corpuscular Hemoglobin Concent 35.7g/dl Red Cell Distribution Width 12.5% Platelet Count 56315^3/UL Mean Platelet Volume 9.3fl Neutrophils % 82.9% Lymphocytes % 11.0% Monocytes % 5.4% Eosinophils % 0.1% Basophils % 0.2% Nucleated Red Blood Cells % 0.0/100WBC Neutrophils # (Manual) 10.410^3/ul Lymphocytes # 1.410^3/ul Monocytes # 0.710^3/ul Eosinophils # 0.010^3/ul Basophils # 0.010^3/ul Nucleated Red Blood Cells # 0.010^3/ul Urine Color YELLOW Urine Clarity SLIGHTLY CLOUDY Urine pH 6.0 Urine Specific [place] 1.026 Urine Ketones 2+mg/dL Urine Nitrite NEGATIVEmg/dL Urine Bilirubin NEGATIVEmg/dL Urine Urobilinogen 1+mg/dL Urine Leukocyte Esterase 1+Martínez/ul Urine Microscopic RBC 3/HPF Urine Microscopic WBC 30/HPF Urine Squamous Epithelial Cells FEW/HPF Urine Bacteria FEW/HPF Urine Mucus MANY/HPF Urine Hemoglobin NEGATIVEmg/dL Urine Glucose NEGATIVEmg/dL Urine Total Protein 1+mg/dl Sodium Level 144mmol/L Potassium Level 3.6mmol/L Chloride Level 101mmol/L Carbon Dioxide Level 27mmol/L Anion Gap 20 Blood Urea Nitrogen 17mg/dl Creatinine 0.79mg/dl Glucose Level 133mg/dl Calcium Level 10.2mg/dl Total Bilirubin 0.8mg/dl Direct Bilirubin 0.00mg/dl Indirect Bilirubin 0.8mg/dl Aspartate Amino Transf (AST/SGOT) 15IU/L Alanine Aminotransferase (ALT/SGPT) 36IU/L Alkaline Phosphatase 88IU/L Total Protein 8.7g/dl Albumin 5.0g/dl Globulin 3.70g/dl Albumin/Globulin Ratio 1.35 Lipase 118U/L Current Medications Medications (Trade) Dose Ordered Sig/Lidia Route PRN Reason Start Time Stop Time Status Last Admin Dose Admin Sodium Chloride (NS) 1,000 ml @ 1,000 mls/hr Q1H STAT IV 07/06/17 15:10 07/06/17 16:09 DC 07/06/17 15:33 Hydromorphone HCl (Dilaudid) 0.5 mg ONCE STAT IV 07/06/17 15:10 07/06/17 15:12 DC 07/06/17 15:39 Metoclopramide HCl (Reglan) 10 mg ONCE STAT IV 07/06/17 15:10 07/06/17 15:12 DC 07/06/17 15:37 Ondansetron HCl 8 mg 8 mg ONCE STAT IV 07/06/17 16:24 07/06/17 16:25 DC 07/06/17 16:30 Ceftriaxone Sodium (Rocephin) 50 ml @ 100 mls/hr ONCE STAT IVPB 07/06/17 16:30 07/06/17 16:59 DC 07/06/17 17:00 Procedures/MDM 42-year-old female history of hysterectomy 6 weeks ago, cholecystectomy, pancreatitis presents to the emergency department complaining of severe constant generalized abdominal pain, mostly in the right upper quadrant and nonbilious nonbloody vomiting for the past 7 days. Patient was found to have a urinary tract infection with hematuria on urine analysis. Evidence of nephrolithiasis, pyelonephritis, pancreatitis, cholecystitis CBC did not show any significant anemia or leukocytosis. CMP did not show any evidence of renal , liver or electrolyte abnormalities. Lipase is within normal limits. RUQ ultrasound: Status post cholecystectomy with physiologic dilatation of the CBD. Slightly prominent pancreatic duct measuring 2 mm. No discrete mass is noted. CT abd and pelvis without contrast: No evidence of renal or ureteral calculi or hydronephrosis. No evidence of bowel obstruction or inflammation. There is a partially fecal filled colon. There is no appendicitis with An area of calcification is seen within the area of the right internal iliac vein which could represent sequelae of prior thrombosis. No visible inflammatory changes seen within the pelvis. Anoxic testing was provided to the patient. In the ED patient was given 1 g of ceftriaxone and she was given a prescription for Keflex Reglan as an outpatient. I discussed with her to follow-up with her primary care physician. She understands and agrees this plan Departure Diagnosis: Primary Impression: UTI (urinary tract infection) Additional Impression: Nausea & vomiting Condition: Stable TERI CRANE PA-C Jul 06, 2017 15:17
--- NOTE | 2017-07-06 16:19 | RADRPT ---
PROCEDURE: US Abdomen. CLINICAL INDICATION: abdominal pain , vomiting TECHNIQUE: Multiple real-time images were acquired of the patient's right upper quadrant abdomen a nd retroperitoneum utilizing a high resolution transducer. COMPARISON: None FINDINGS: The liver demonstrates normal echogenicity. The liver is normal in size and no focal solid lesions are seen. The liver measures 13 cm in length. The portal vein is patent with normal direction of mika w. No intrahepatic biliary dilatation is seen. The patient is status post cholecystectomy. The common bile duct measures 8 mm in maximal dimension. The pancreatic duct is slightly prominent measuring 2 mm. The pancreas is otherwise unremarkable. No free fluid is identified. The right kidney is normal in size, and demonstrate normal echogenicity and cortical thickness. The right kidney measures 10.9 cm in long dimension. There is no evidence of hydronephrosis. There are no kidney stones. RPTAT: AA IMPRESSION: Status post cholecystectomy with physiologic dilatation of the CBD. Slightly prominent pancreatic duct measuring 2 mm. No discrete mass is noted. .Hernandez Orona MD, MD Date Time Electronically viewed and signed by .Hernandez Orona MD, on 07/06/2017 16:19 .S/
[2017-07-06 16:22] LABS: BASOPHILS % 0.2 % (0.0-2.0); EOSINOPHILS % 0.1 % (0.0-7.0); HEMATOCRIT 44.5 % (37.0-47.0); HEMOGLOBIN 15.9 g/dl (12.0-16.0); LYMPHOCYTES # 1.4 10^3/ul (0.8-2.9); MEAN CORPUSCULAR HEMOGLOBIN 33.5 pg (29.0-33.0); MEAN CORPUSCULAR HGB CONC 35.7 g/dl (32.0-37.0); MEAN CORPUSCULAR VOLUME 93.9 fl (82.0-101.0); MEAN PLATELET VOLUME 9.3 fl (7.4-10.4); MONOCYTE # 0.7 10^3/ul (0.3-0.9); MONOCYTES % 5.4 % (0.0-11.0); NEUTROPHILS % 82.9 % (39.0-77.0); PLATELET COUNT 364 10^3/UL (140-415); RED BLOOD COUNT 4.74 10^6/ul (4.20-5.40); RED CELL DISTRIBUTION WIDTH 12.5 % (11.5-14.5); WHITE BLOOD COUNT 12.5 10^3/ul (4.8-10.8)
[2017-07-06 16:24] LABS: ADD UMIC YES; UR ASCORBIC ACID NEGATIVE (NEGATIVE); UR BACTERIA FEW /HPF (NONE SEEN); UR BILIRUBIN (Dip) NEGATIVE (NEGATIVE); UR BLOOD (Dip) NEGATIVE (NEGATIVE); UR CLARITY SLIGHTLY CLOUDY (CLEAR); UR COLOR YELLOW (YELLOW); UR GLUCOSE (Dip) NEGATIVE (NEGATIVE); UR KETONES (Dip) 2+ mg/dL (NEGATIVE); UR LEUKOCYTE ESTERASE (Dip) 1+ Leu/ul (NEGATIVE); UR MUCUS MANY /HPF (NONE SEEN); UR NITRITE (Dip) NEGATIVE (NEGATIVE); UR RBC 3 /HPF (0-5); UR SPECIFIC GRAVITY (Dip) 1.026 (1.003-1.030); UR SQUAMOUS EPITHELIAL CELL FEW /HPF (FEW); UR TOTAL PROTEIN (Dip) 1+ mg/dl (NEGATIVE); UR UROBILINOGEN (Dip) 1+ mg/dL (NEGATIVE)
[2017-07-06] MEDS ORDERED: ONDANSETRON 4 MG INJ IV STA (16:24)
[2017-07-06 16:27] LABS: ALBUMIN/GLOBULIN RATIO 1.35; BILIRUBIN,INDIRECT 0.8 mg/dl (0-1.1); BILIRUBIN,TOTAL 0.8 mg/dl (0.2-1.3); CALCIUM 10.2 mg/dl (8.4-10.2); CREATININE 0.79 mg/dl (0.44-1.00); POTASSIUM 3.6 mmol/L (3.5-5.1); TOTAL PROTEIN 8.7 g/dl (6.1-8.1)
[2017-07-06] MEDS ORDERED: CEFTRIAXONE 1 GM/50 ML (PMX) 50 ML IVPB STA (16:30)
--- NOTE | 2017-07-06 16:35 | RADRPT ---
PROCEDURE: CT abdomen and pelvis without contrast. CLINICAL INDICATION: Abdominal pain. TECHNIQUE: CT scan of the abdomen and pelvis without contrast was performed on a multi-slice CT [facility] . Sagittal and coronal reformatted images were obtained from the axial source images. One or more of the following dose reduction techniques were used: - Automated exposure control. - Adjustment of the mA and/or kV according to patient size. - Use of iterative reconstruction technique. DLP 398.1 mGycm. CTDIvol 8.1 mGy COMPARISON: MRCP/ FINDINGS: The lung bases are clear. There is limited evaluation of the solid viscera from the lack of IV con trast. The kidneys are symmetric bilaterally with no evidence of renal or ureteral calculi. There is no hy dronephrosis or perinephric stranding. There is normal density of the liver with no gross focal lesion or biliary ductal dilatation. The gallbladder is resected. The spleen is unremarkable without mass. The adrenal glands are within normal limits without mass. The pancreas is unremarkable without focal lesion or surrounding inflammatory changes. There is no bowel obstruction or focal bowel inflammation. The appendix is unremarkable. There is a partially fecal filled colon. There is no free air or free fluid. There are no enlarged lymph node s. 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 The aorta is unremarkable. Degenerative endplate and facet changes are seen without evidence of acu te fracture or dislocation. The uterus is resected. There is no visible adnexal mass. Surgical clips are seen in the pelvis. IMPRESSION: No evidence of renal or ureteral calculi or hydronephrosis. No evidence of bowel obstruction or inflammation. There is a partially fecal filled colon. 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 No visible inflammatory changes seen within the pelvis. RPTAT: AA .Jose Luis Ivey MD, Date Time Electronically viewed and signed by .Jose Luis Ivey MD, on 07/06/2017 16:34 .J/
[2017-07-06] MEDS ORDERED: UDREG PO (16:41)
[2017-07-06] MEDS ORDERED: CEPH-443 PO (16:41)
[2017-07-06 18:10] VITALS: BP 117/72; PULSE 66; RESP 16; TEMP 98.1
== END 2017-07-06 18:10 | disposition home or self-care (01) ==
LOC: FTE 12:34
DX: N39.0 Urinary tract infection, site not specified (principal); R11.2 Nausea with vomiting, unspecified
CPT/HCPCS: 36415; 74176; 76705; 80053; 81001; 83690; 85025; 96361; 96365; 96375; 99285; J0696; J1170; J2405; J2765; J7030